=== PATIENT | female | born 1970 | race Caucasian/White ===

== ENCOUNTER → 2016-07-09 | Outpatient (CLI) | payer OTHER ==
--- NOTE | 2016-07-09 18:00 | XR ---
EXAMINATION TYPE: XR shoulder complete LT DATE OF EXAM: 07/09/2016 5:41 PM COMPARISON: NONE HISTORY: Shoulder pain TECHNIQUE: 2 views FINDINGS: I see no fracture nor dislocation. There are no pathologic calcifications. Joint spaces are normal. IMPRESSION: Negative left shoulder exam.
== END ==
LOC: RADXRMAIN 16:56
PROVIDERS: ATTEND Family Medicine
DX: M25.512 Pain in left shoulder (principal)

== ENCOUNTER → 2016-07-10 | Outpatient (CLI) | payer OTHER ==
[2016-07-10 09:17] LABS: Basophils # (A) 0.1 k/uL (0-0.2); Basophils % (A) 1 %; CH 32.3; CHCM 32.5; Eosinophils # (A) 0.1 k/uL (0-0.7); Eosinophils % (A) 1 %; HCT 45.9 % (34.0-46.0); HDW 2.61; HGB 15.2 gm/dL (11.4-16.0); Luc # (Auto) 0.16; Luc % (Auto) 3; Lymphocytes # (A) 1.9 k/uL (1.0-4.8); Lymphocytes % (A) 32 %; MCV 99.8 fL (80.0-100.0); Macrocytosis Slight; Mean Platelet Volume 8.5; Monocytes # (A) 0.3 k/uL (0-1.0); Monocytes % (A) 6 %; Neutrophils # (A) 3.4 k/uL (1.3-7.7); Neutrophils % (A) 57 %; RDW 14.3 % (11.5-15.5); WBC 5.9 k/uL (3.8-10.6); WBC (Perox) 5.88
[2016-07-10 10:25] LABS: Erythrocyte Sedimentation Rate 8 mm/hr (0-20)
[2016-07-10 11:38] LABS: ALT 48 U/L (9-52); AST 28 U/L (14-36); Alkaline Phosphatase 84 U/L (38-126); Anion Gap 13 mmol/L; Blood Urea Nitrogen 18 mg/dL (7-17); Calcium 9.7 mg/dL (8.4-10.2); Carbon Dioxide 29 mmol/L (22-30); Chloride 104 mmol/L (98-107); Cholesterol 191 mg/dL (<200); Glucose 101 mg/dL (74-99); HDL Cholesterol 61 mg/dL (40-60); Potassium 5.1 mmol/L (3.5-5.1); Sodium 146 mmol/L (137-145); Total Bilirubin 0.4 mg/dL (0.2-1.3); Total Protein 7.2 g/dL (6.3-8.2); Triglycerides 165 mg/dL (<150)
[2016-07-10 11:40] LABS: Non-African American GFR(MDRD) >60 (>60 ml/min/1.73 sqM)
[2016-07-10 11:41] LABS: Rheumatoid Factor, Qnt <9 IU/mL (<12)
[2016-07-10 12:30] LABS: Vitamin B12 521 pg/mL (239-931)
== END | disposition home or self-care (01) ==
LOC: LABWHC1 08:59
PROVIDERS: ATTEND Family Medicine
DX: Z00.00 Encounter for general adult medical examination without abnormal findings (principal); R53.83 Other fatigue; M25.50 Pain in unspecified joint
CPT/HCPCS: 36415; 80053; 80061; 82607; 84443; 85025; 85652; 86038; 86431

== ENCOUNTER → 2016-08-31 | Outpatient (CLI) | payer OTHER ==
--- NOTE | 2016-08-31 09:07 | MR ---
EXAMINATION TYPE: MR shoulder LT wo con DATE OF EXAM: 08/31/2016 8:45 AM COMPARISON: Left shoulder x-ray July 09, 2016 HISTORY: Acute pain in left shoulder per order TECHNIQUE: Multiplanar, multisequence imaging of the left shoulder is performed without contrast. FINDINGS: Rotator Cuff: Supraspinatus and infraspinatus tendons are both intact to humeral head attachment. The re is no evidence of suspicious tear or abnormal signal. Rotator cuff muscle bulk is preserved. Subsc apularis tendon is intact. Acromioclavicular Joint: Acromioclavicular joint is felt within normal limits. Distal acromion morpho logy is unremarkable. Underlying fat plane is maintained. Glenohumeral Joint: There is small to moderate glenohumeral joint effusion. No significant spurring i s seen. Labrum: The labrum appears grossly intact given limitation of non-arthrogram study. Biceps Tendon: The long head of biceps is in normal location within bicipital groove. Some increased signal intra-articular portion is present. Bone marrow signal: Some subchondral cystic change superolateral humeral head is present. Other: No additional significant abnormality is appreciated. IMPRESSION: No meniscal or ligamentous tear is seen. Small to moderate glenohumeral joint effusion. M ild tendinosis intra-articular portion of long head of biceps tendon.
== END | disposition home or self-care (01) ==
LOC: RADMRIMAIN 07:59
PROVIDERS: ATTEND Family Medicine
DX: M25.412 Effusion, left shoulder (principal); M75.22 Bicipital tendinitis, left shoulder

== ENCOUNTER 2016-09-18 12:24 | Emergency (ER) | payer OTHER ==
[2016-09-18 12:46] VITALS: BP 115/70; PULSE 100; RESP 18; TEMP 98.7
[2016-09-18] MEDS ORDERED: SULFAMETHOX-TMP 800-160MG 1 EACH TAB PO STA (12:59)
--- NOTE | 2016-09-18 13:00 | ED ---
Skin/Abscess/FB HPI - General Chief complaint: Skin/Abscess/Foreign Body Stated complaint: Abscess Time Seen by Provider: 09/18/16 12:53 Source: patient, RN notes reviewed Mode of arrival: ambulatory Limitations: no limitations - History of Present Illness Initial comments: 46-year-old female presents emergency Department with chief complaint of abscess to her forehead. Patient states that she started with infected hair follicle but states that she poked it with care headache. Patient states that it made it worse and now it's very painful. Denies fever or chills. She states her was some drainage. Patient states she's been taking some medication for the pain is helping. Denies any neck pain or neck stiffness. Patient offers no complaints. She states she has no history of MRSA VRE. - Related Data Previous Rx's Medication Instructions Recorded Mupirocin Calcium 2% Cream 1 applic TOPICAL TID #15 gm 09/18/16 [Bactroban Cream] Sulfamethox-Tmp 800-160Mg [Bactrim 1 each PO Q12HR #20 tab 09/18/16 Ds] Allergies Allergy/AdvReac Type Severity Reaction Status Date / Time bupropion [From Wellbutrin] Allergy Unknown Verified 09/18/16 12:46 Review of Systems ROS Statement: Those systems with pertinent positive or pertinent negative responses have been documented in the HPI. ROS Other: All systems not noted in ROS Statement are negative. Past Medical History Past Medical History: Neurologic Disorder Additional Past Medical History / Comment(s): joint pain. nerve pain History of Any Multi-Drug Resistant Organisms: None Reported Past Surgical History: Ablation, Bariatric Surgery, Tonsillectomy Additional Past Surgical History / Comment(s): cervical ablation Past Psychological History: Anxiety Smoking Status: Current every day smoker Past Alcohol Use History: Occasional Past Drug Use History: None Reported General Exam Limitations: no limitations General appearance: alert, in no apparent distress Head exam: Present: atraumatic, normocephalic. Absent: normal inspection (1 cm abscess at the frontal hairline) Eye exam: Present: normal appearance, PERRL, EOMI. Absent: scleral icterus, conjunctival injection, periorbital swelling ENT exam: Present: normal exam, normal oropharynx, mucous membranes moist Neck exam: Present: normal inspection. Absent: tenderness, meningismus, lymphadenopathy Respiratory exam: Present: normal lung sounds bilaterally. Absent: respiratory distress, wheezes, rales, rhonchi, stridor Cardiovascular Exam: Present: regular rate, normal rhythm, normal heart sounds. Absent: systolic murmur, diastolic murmur, rubs, gallop, clicks Skin exam: Present: warm, dry Course Vital Signs 09/18/16 12:43 Temperature 98.7 F Pulse Rate 100 Respiratory 18 Rate Blood Pressure 115/70 O2 Sat by Pulse 92 L Oximetry Medical Decision Making - Medical Decision Making 46-year-old female presented for scalp abscess. It is nonfluctuant there is some surrounding erythema. Patient placed on antibiotics warm compresses and Bactroban cream. Return parameters members were discussed. Disposition Clinical Impression: Abscess, scalp Disposition: HOME SELF-CARE Condition: Stable Instructions: Abscess (ED) Additional Instructions: Please return to the Emergency Department if symptoms worsen or any other concerns. Prescriptions: Mupirocin Calcium 2% Cream [Bactroban Cream] 1 applic TOPICAL TID #15 gm Sulfamethox-Tmp 800-160Mg [Bactrim Ds] 1 each PO Q12HR #20 tab Referrals: Pastora Verdin MD [Primary Care Provider] - 1-2 days Time of Disposition: 13:00
== END 2016-09-18 13:15 | disposition home or self-care (01) ==
LOC: EC 12:24
DX: L02.811 Cutaneous abscess of head [any part, except face] (principal); F17.200 Nicotine dependence, unspecified, uncomplicated; Z88.8 Allergy status to other drugs, medicaments and biological substances
CPT/HCPCS: 99283

== ENCOUNTER → 2016-12-11 | Outpatient (CLI) | payer OTHER ==
[2016-12-11 13:58] LABS: Basophils # (A) 0.1 k/uL (0-0.2); Basophils % (A) 1 %; CH 33.4; CHCM 32.9; Eosinophils # (A) 0.2 k/uL (0-0.7); Eosinophils % (A) 2 %; HCT 43.8 % (34.0-46.0); HDW 2.16; HGB 14.2 gm/dL (11.4-16.0); Luc # (Auto) 0.12; Luc % (Auto) 1; Lymphocytes # (A) 2.2 k/uL (1.0-4.8); Lymphocytes % (A) 24 %; MCH 32.9 pg (25.0-35.0); MCHC 32.3 g/dL (31.0-37.0); Macrocytosis Slight; Mean Platelet Volume 8.6; Monocytes # (A) 0.4 k/uL (0-1.0); Monocytes % (A) 4 %; Neutrophils % (A) 68 %; RDW 14.5 % (11.5-15.5); WBC 8.9 k/uL (3.8-10.6); WBC (Perox) 9.38
[2016-12-11 14:24] LABS: ALT 30 U/L (9-52); AST 19 U/L (14-36); Alkaline Phosphatase 75 U/L (38-126); Anion Gap 11 mmol/L; Blood Urea Nitrogen 14 mg/dL (7-17); Calcium 9.6 mg/dL (8.4-10.2); Carbon Dioxide 24 mmol/L (22-30); Chloride 106 mmol/L (98-107); Glucose 98 mg/dL (74-99); Iron 134 ug/dL (37-170); Non-African American GFR(MDRD) >60 (>60 ml/min/1.73 sqM); Potassium 4.1 mmol/L (3.5-5.1); Sodium 141 mmol/L (137-145); Total Bilirubin 0.4 mg/dL (0.2-1.3); Total Protein 6.9 g/dL (6.3-8.2)
== END | disposition home or self-care (01) ==
LOC: LABWHC1 13:18
PROVIDERS: ATTEND Family Medicine
DX: R53.83 Other fatigue (principal)
CPT/HCPCS: 36415; 80053; 82672; 83036; 83540; 84144; 84443; 85025

== ENCOUNTER → 2017-01-17 | Outpatient (CLI) | payer BC ==
--- NOTE | 2017-01-17 11:41 | US ---
EXAMINATION TYPE: US pelvis complete transvag DATE OF EXAM: 01/17/2017 COMPARISON: NONE CLINICAL HISTORY: D25.9 Fibroids. Pt states cramping and known fibroids/ History of ablation 9 yrs ag o TECHNIQUE: Transvaginal (TV) and Transabdominal (TA) Date of LMP: 9 years ago EXAM MEASUREMENTS: Uterus: 9.0 x 4.3 x 4.3 cm Endometrial Stripe: 0.4 cm Right Ovary: 1.9 x 1.9 x 1.8 cm Left Ovary: 2.5 x 2.3 x 2.2 cm 1. Uterus: Anteverted Grossly heterogeneous with no definite mass visualized 2. Endometrium: wnl 3. Right Ovary: wnl 4. Left Ovary: wnl 5. Bilateral Adnexa: wnl 6. Posterior cul-de-sac: wnl IMPRESSION: 1. Nonspecific heterogeneity of the uterine myometrium. No distinct mass seen.
== END ==
LOC: RADUSWWP 10:08
PROVIDERS: ATTEND Family Medicine
DX: D25.9 Leiomyoma of uterus, unspecified (principal)
CPT/HCPCS: 76830; 76856

== ENCOUNTER → 2018-06-02 | Outpatient (CLI) | payer OTHER ==
--- NOTE | 2018-06-02 23:07 | XR ---
EXAMINATION TYPE: XR lumbar spine 2 or 3V DATE OF EXAM: 06/02/2018 CLINICAL HISTORY: Low back pain. TECHNIQUE: Frontal and lateral images of the lumbar spine are obtained. COMPARISON: None FINDINGS: There are 5 lumbar type vertebral bodies identified. The lumbar spine shows slight dextro convex scoliotic positioning centered the lumbar spine without evidence of acute fracture or dislocat ion. Straightening of spine is seen on lateral images. There is mild disc space narrowing L4-L5 level otherwise vertebral body heights and disk space heights are within normal limits. Overlying vascular calcification of aorta is seen. Surgical betzaida and sutures epigastric region are noted. IMPRESSION: Loss of normal lumbar lordosis with mild disc space narrowing L4-L5 level.
== END ==
LOC: RADXRMAIN 15:56
PROVIDERS: ATTEND Physician Assistant
DX: M48.061 Spinal stenosis, lumbar region without neurogenic claudication (principal); M40.46 Postural lordosis, lumbar region
CPT/HCPCS: 72100

== ENCOUNTER → 2018-06-30 | Outpatient (CLI) | payer OTHER ==
--- NOTE | 2018-07-01 12:58 | MM ---
Reason for exam: screening (asymptomatic). Last mammogram was performed 2 years and 4 months ago. Physical Findings: A clinical breast exam by your physician is recommended on an annual basis and results should be correlated with mammographic findings. MG Screening Mammo w CAD Bilateral CC and MLO view(s) were taken. Prior study comparison: March 14, 2016, mammogram, performed at [place]. March 25, 2014, mammogram, performed at [place]. The breast tissue is heterogeneously dense. This may lower the sensitivity of mammography. Benign oil cyst calcifications on the right breast. No significant changes when compared with prior studies. ASSESSMENT: Negative, BI-RAD 1 RECOMMENDATION: Routine screening mammogram of both breasts in 1 year.
== END ==
LOC: RADMAMWWP 13:23
PROVIDERS: ATTEND Family Medicine
DX: Z12.31 Encounter for screening mammogram for malignant neoplasm of breast (principal)
CPT/HCPCS: 77067

== ENCOUNTER → 2019-03-31 | Outpatient (CLI) | payer OTHER ==
--- NOTE | 2019-03-31 21:48 | MR ---
EXAMINATION TYPE: MR lumbar spine wo con DATE OF EXAM: 03/31/2019 COMPARISON: Lumbar spine x-ray June 02, 2018 HISTORY: Low back pain TECHNIQUE: Multiplanar, multisequence imaging of the lumbar spine is performed without IV contrast. FINDINGS: Sagittal images of the lumbar spine show vertebral body heights and alignment to appear sa tisfactory. Multilevel disc desiccation with mild multilevel disc space narrowing. The conus medulla ris is normal in position and signal and the labeled superior L1 level. The bone marrow signal inten sity is within normal limits. Axial images beginning labeled T12-L1 level which is within normal limits. Axial images at L1-L2 and L2-L3 levels remain within normal limits. Axial images at L3-L4 level show mild left greater than right facet degenerative changes and ligament flavum hypertrophy effacing the posterior lateral thecal sac on axial image 13. Axial images at L4-L5 level moderate facet degenerative changes with mild perinephric space and poste rior lateral thecal sac. There is mild/moderate broad disc bulge with right foraminal disc protrusion component on axial image 8. This effacement the anterior thecal sac. There is mild left and moderate right-sided inferior neural foraminal narrowing. Encroachment on exiting right L4 nerve suspected ax ial image 8 and sagittal image 12. Axial images at L5-S1 level show moderate facet degenerative changes and ligamentum flavum hypertroph y effacing posterior lateral thecal sac with mild/moderate broad disc bulge minimally effacing the an terior thecal sac. There is mild bilateral anterior inferior neural foraminal narrowing right greater than left with some encroachment on the inferior margin right L5 nerve suspected sagittal image 12 a nd axial image 3. No suspicious incidental retroperitoneal findings. IMPRESSION: Multilevel degenerative changes most prominent lower lumbar levels as detailed above
== END | disposition home or self-care (01) ==
LOC: RADMRIMAIN 14:39
PROVIDERS: ATTEND Physician Assistant
DX: M99.73 Connective tissue and disc stenosis of intervertebral foramina of lumbar region (principal); M48.07 Spinal stenosis, lumbosacral region; M48.061 Spinal stenosis, lumbar region without neurogenic claudication; M51.27 Other intervertebral disc displacement, lumbosacral region; M51.26 Other intervertebral disc displacement, lumbar region; M47.817 Spondylosis without myelopathy or radiculopathy, lumbosacral region; M47.816 Spondylosis without myelopathy or radiculopathy, lumbar region
CPT/HCPCS: 72148

== ENCOUNTER → 2019-11-06 | Outpatient (CLI) | payer OTHER | END | disposition home or self-care (01) | LOC: LABWHC1 13:04 | PROVIDERS: ATTEND Nurse Practitioner Family | DX: Z20.828 Contact with and (suspected) exposure to other viral communicable diseases (principal) ==

== ENCOUNTER → 2020-02-11 | Outpatient (CLI) | payer OTHER ==
--- NOTE | 2020-02-12 12:20 | MM ---
Reason for exam: screening (asymptomatic). Last mammogram was performed 1 year and 7 months ago. Physical Findings: A clinical breast exam by your physician is recommended on an annual basis and results should be correlated with mammographic findings. MG Screening Mammo w CAD Bilateral CC and MLO view(s) were taken. Prior study comparison: June 30, 2018, bilateral MG screening mammo w CAD. March 14, 2016, mammogram, performed at [place]. The breast tissue is heterogeneously dense. This may lower the sensitivity of mammography. There are benign appearing round calcifications bilaterally. There is no discrete abnormality. ASSESSMENT: Benign, BI-RAD 2 RECOMMENDATION: Routine screening mammogram of both breasts in 1 year.
== END | disposition home or self-care (01) ==
LOC: RADMAMWWP 13:31
PROVIDERS: ATTEND Family Medicine
DX: Z12.31 Encounter for screening mammogram for malignant neoplasm of breast (principal)
CPT/HCPCS: 77067

== ENCOUNTER 2020-04-21 15:26 | Emergency (ER) | payer OTHER ==
[2020-04-21 15:32] VITALS: TEMP 98.9
[2020-04-21 16:08] LABS: Basophils # (A) 0.1 k/uL (0-0.2); Basophils % (A) 2 %; Eosinophils # (A) 0.2 k/uL (0-0.7); Eosinophils % (A) 2 %; HCT 36.8 % (34.0-46.0); HGB 12.1 gm/dL (11.4-16.0); Lymphocytes # (A) 2.3 k/uL (1.0-4.8); Lymphocytes % (A) 28 %; MCH 29.4 pg (25.0-35.0); MCV 89.3 fL (80.0-100.0); Mean Platelet Volume 7.7; Monocytes # (A) 0.3 k/uL (0-1.0); Monocytes % (A) 4 %; Neutrophils % (A) 62 %; Platelet Count 255 k/uL (150-450); RBC 4.12 m/uL (3.80-5.40); WBC 8.2 k/uL (3.8-10.6)
[2020-04-21 16:17] LABS: ALT 13 U/L (4-34); AST 19 U/L (14-36); African American GFR (CKD) >90 (>60 ml/min/1.73 sqM); Albumin 4.3 g/dL (3.5-5.0); Alkaline Phosphatase 82 U/L (38-126); Anion Gap 13 mmol/L; Blood Urea Nitrogen 12 mg/dL (7-17); Calcium 9.6 mg/dL (8.4-10.2); Carbon Dioxide 17 mmol/L (22-30); Chloride 107 mmol/L (98-107); Glucose 188 mg/dL (74-99); Lipase 84 U/L (23-300); Magnesium 1.9 mg/dL (1.6-2.3); Non-African American GFR(CKD) >90 (>60 ml/min/1.73 sqM); Potassium 3.8 mmol/L (3.5-5.1); Sodium 137 mmol/L (137-145); Total Bilirubin 0.2 mg/dL (0.2-1.3); Total Protein 7.2 g/dL (6.3-8.2)
--- NOTE | 2020-04-21 16:24 | XR ---
EXAMINATION TYPE: XR chest 2V DATE OF EXAM: 04/21/2020 COMPARISON: NONE HISTORY: Chest pain today. TECHNIQUE: Frontal and lateral views of the chest are obtained. FINDINGS: There is no focal air space opacity, pleural effusion, or pneumothorax seen. The cardiac silhouette size is within normal limits. The osseous structures are intact. Surgical clips epigastr ic region. Overlying EKG leads. IMPRESSION: No acute cardiopulmonary process.
--- NOTE | 2020-04-21 16:28 | ED ---
Chest Pain HPI - General Chief Complaint: Chest Pain Stated Complaint: Chest pain Time Seen by Provider: 04/21/20 15:34 Source: patient Mode of arrival: ambulatory Limitations: no limitations - History of Present Illness Initial Comments: Patient is a 50-year-old female presents to the emergency department with reported chest pain that she has had for the last week. Reports intermittent. Denies any provocative factors. States she has associated shortness of breath. No history of coronary disease. Patient is a smoker. Denies COPD or asthma history. No fevers or chills. Denies cough. Symptoms to her primary care doctor sent her into the emergency room for evaluation. No other alleviating, precipitating or modifying factors - Related Data Home Medications Medication Instructions Recorded Confirmed Albuterol Inhaler [Ventolin Hfa 1 - 2 puff INHALATION RT-Q6H PRN 04/21/20 04/21/20 Inhaler] Budesonide/Formoterol Fumarate 2 puff INHALATION RT-BID 04/21/20 04/21/20 [Symbicort 160-4.5 Mcg Inhaler] Ibuprofen [Motrin] 800 mg PO TID PRN 04/21/20 04/21/20 LORazepam [Ativan] 1 mg PO BID PRN 04/21/20 04/21/20 methocarbamoL [Robaxin] 750 mg PO TID PRN 04/21/20 04/21/20 Allergies Allergy/AdvReac Type Severity Reaction Status Date / Time bupropion [From Wellbutrin] Allergy Rash/Hives Verified 04/21/20 17:17 Review of Systems ROS Statement: Those systems with pertinent positive or pertinent negative responses have been documented in the HPI. ROS Other: All systems not noted in ROS Statement are negative. EKG Findings - EKG Comments: EKG Findings:: EKG demonstrates a sinus tachycardia with a ventricular rate of 105. GA interval 144. QRS 86. QTC of 41. No acute ST segment elevations or depressions Past Medical History Past Medical History: Neurologic Disorder Additional Past Medical History / Comment(s): joint pain. nerve pain History of Any Multi-Drug Resistant Organisms: MRSA Date of last positivie culture/infection: 09/20/16 MDRO Source:: head Past Surgical History: Ablation, Bariatric Surgery, Tonsillectomy Additional Past Surgical History / Comment(s): cervical ablation Past Psychological History: Anxiety Smoking Status: Current every day smoker Past Alcohol Use History: Occasional Past Drug Use History: None Reported General Exam Limitations: no limitations Course Vital Signs 04/21/20 04/21/20 15:28 17:16 Temperature 98.9 F Pulse Rate 110 H 100 Respiratory 18 16 Rate Blood Pressure 129/66 108/70 O2 Sat by Pulse 100 99 Oximetry Chest Pain MDM - MDM Upon arrival patient is placed into room 11. A thorough history and physical exam was performed. Laboratory studies were conducted the patient went for chest x-ray. D-dimer is negative. Troponin is negative. Chest x-ray demonstrates no acute process. Discuss results with the patient's. Did discuss admission for echo. Patient refused stating that she wanted to go home and felt a primary care doctor for this. I did refer her back to Dr. Butcher's office. Recommended she get a stress test and echo. Return to the emergency room for any new or worsening symptoms. Patient was discharged with stable condition Disposition Clinical Impression: Chest pain Disposition: HOME SELF-CARE Condition: Stable Instructions (If sedation given, give patient instructions): Chest Pain (ED) Additional Instructions: Please follow-up with your primary care doctor. I recommend an Echo and Stress test. Return to the emergency room for any new or worsening symptoms Is patient prescribed a controlled substance at d/c from ED?: No Referrals: Avtar Butcher MD [Primary Care Provider] - 1-2 days Time of Disposition: 17:14
[2020-04-21 16:30] LABS: D-Dimer 0.26 mg/L FEU (<0.60); INR 0.9 (<1.2); Prothrombin Time 9.4 sec (9.0-12.0)
[2020-04-21 16:35] LABS: Partial Thromboplastin Time 21.8 sec (22.0-30.0)
[2020-04-21 17:17] VITALS: BP 108/70; PULSE 100; RESP 16
== END 2020-04-21 17:30 | disposition home or self-care (01) ==
LOC: EC 15:26
DX: R07.9 Chest pain, unspecified (principal); R06.02 Shortness of breath; F41.9 Anxiety disorder, unspecified; F17.200 Nicotine dependence, unspecified, uncomplicated; Z79.51 Long term (current) use of inhaled steroids; Z79.899 Other long term (current) drug therapy; Z88.8 Allergy status to other drugs, medicaments and biological substances; Z98.84 Bariatric surgery status
CPT/HCPCS: 36415; 71046; 80053; 83690; 83735; 83880; 84484; 85025; 85379; 85610; 85730; 93005; 99285

== ENCOUNTER → 2020-05-30 | Outpatient (CLI) | payer OTHER ==
[2020-05-30 12:31] VITALS: BP 120/75; PULSE 94; RESP 16; TEMP 98.3
--- NOTE | 2020-05-30 20:12 | P.PAINCN ---
History of Present Illness - Reason for Consult Consult date: 05/30/20 Low back pain - Chief Complaint Low back pain - History of Present Illness 50-year-old female who presents to the [facility] pain clinic as an initial consultation. She was a previous patient of Dr. Shelton Stewart. In July and October 2019 she underwent lumbar medial branch diagnostic test of the L2, L3, L4, L5 medial branches. She reports significant relief greater than 70% with both those test. The benefits lasted for greater than 4 days. Pain today is an 8 out of 10 in severity describes as a throbbing, aching, sharp pain in her low back worse with movement and any activity periods improved with rest. Pain is typically worse in the morning improved slightly during the morning hours and progressively gets worse as the day progresses. She's been taking Motrin 800 mg 3 times a day for the past 13 years. Into her own admission she feels "dependent" on Motrin. She is also taking benzodiazepines for severe anxiety. Review of Systems Constitutional: Denies chills, Denies fever Ears, nose, mouth and throat: Denies headache, Denies sore throat Cardiovascular: Denies chest pain, Denies shortness of breath Respiratory: Denies cough Gastrointestinal: Denies abdominal pain, Denies diarrhea, Denies nausea, Denies vomiting Genitourinary: Denies dysuria, Denies hematuria Musculoskeletal: Denies myalgias Integumentary: Denies pruritus, Denies rash Neurological: Denies numbness, Denies weakness Psychiatric: Denies anxiety, Denies depression Endocrine: Denies fatigue, Denies weight change Past Medical History Past Medical History: Chest Pain / Angina, COPD, Neurologic Disorder Additional Past Medical History / Comment(s): lower back History of Any Multi-Drug Resistant Organisms: MRSA Year Discovered:: 09/20/16 MDRO Source:: head Past Surgical History: Bariatric Surgery, Tonsillectomy Additional Past Surgical History / Comment(s): cervical ablation, oral sx, pain injections Past Anesthesia/Blood Transfusion Reactions: No Reported Reaction Smoking Status: Current every day smoker Medications and Allergies Home Medications Medication Instructions Recorded Confirmed Type Albuterol Inhaler [Ventolin Hfa 1 - 2 puff INHALATION RT-Q6H PRN 04/21/20 05/26/20 History Inhaler] Budesonide/Formoterol Fumarate 2 puff INHALATION RT-BID 04/21/20 05/26/20 History [Symbicort 160-4.5 Mcg Inhaler] Ibuprofen [Motrin] 800 mg PO TID PRN 04/21/20 05/26/20 History LORazepam [Ativan] 1 mg PO BID PRN 04/21/20 05/26/20 History methocarbamoL [Robaxin] 750 mg PO TID PRN 04/21/20 05/26/20 History Nicotine 21Mg/24Hr Patch [Habitrol] 1 each TRANSDERM DAILY 05/26/20 05/26/20 History Otc Sleep Aid 1 tab PO HS 05/26/20 History Allergies Allergy/AdvReac Type Severity Reaction Status Date / Time bupropion [From Wellbutrin] Allergy Rash/Hives Verified 05/26/20 15:07 Physical Exam Vitals: Reviewed and Appropriate. General: Awake and alert oriented 3 no distress Respiratory exam: No audible wheezing no accessory muscle usage Cardiovascular exam: regular rate, palpable bilateral pulses, no lower extremity edema Abdominal exam: No distention nontender to palpation Cervical spine: Flexion and extension are preserved, lateral rotation preserved. Rodriguez's is negative bilaterally. Upper shoulder strength is normal bilaterally. 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 Pincer grasp is normal. Lumbar spine: Loss of lumbar lordosis, atrophy of the paraspinal muscles. Pain with extension at -5 degrees. Facet loading positive bilateral. Lower extremity strength is 4-5 bilaterally at the hamstrings and quadriceps. Is able stand on her toes and her heels. Deep tendon reflexes are 2+ bilaterally. Sacroiliac joints: Nontender to palpation, JULIETTE is negative, Gaenselon negative Neuro exam: Normal sensation in bilateral upper extremities, deep tendon reflexes are 2+ bilateral upper extremities. Normal sensation in bilateral lower extremities. Deep tendon reflexes are 2+ in lower extremities Psych exam: Cooperative, appropriate mood, anxious Results Results: MRI lumbar spine May 2018: Shows multilevel moderate degenerative disc disease as well as facet arthropathy greatest at L3-L4, L4-L5, L5-S1. There is bilateral neural foraminal narrowing on the right greater than left encroaching on the right L5 nerve root at L5-S1. There is also encroachment of the right L4 nerve root secondary to neural foraminal narrowing. Assessment and Plan Assessment: 1. Lumbar spondylosis without myelopathy 2. Lumbar degenerative disc disease L4 5 3. Lumbar anterior listhesis L4-5 Plan: We'll schedule for bilateral lumbar radio efficacy ablation of the L2, L3, L4, L5 medial branches. Risks and benefits discussed with patient in detail. PQRS Measure Charge Sheet PQRS Narrative: Smoking Status Current every day smoker Pain Intensity [Back] 7 Scale Used Numeric (1 - 10) Home Medications: Ambulatory Orders Albuterol Inhaler [Ventolin Hfa Inhaler] 1 - 2 puff INHALATION RT-Q6H PRN 04/21/20 Budesonide/Formoterol Fumarate [Symbicort 160-4.5 Mcg Inhaler] 2 puff INHALATION RT-BID 04/21/20 Ibuprofen [Motrin] 800 mg PO TID PRN 04/21/20 LORazepam [Ativan] 1 mg PO BID PRN 04/21/20 methocarbamoL [Robaxin] 750 mg PO TID PRN 04/21/20 Nicotine 21Mg/24Hr Patch [Habitrol] 1 each TRANSDERM DAILY 05/26/20 Otc Sleep Aid 1 tab PO HS 05/26/20
== END | disposition home or self-care (01) ==
LOC: PNWHC3 12:02
PROVIDERS: ATTEND Anesthesiology
DX: M43.16 Spondylolisthesis, lumbar region (principal); M51.36 Other intervertebral disc degeneration, lumbar region; M47.816 Spondylosis without myelopathy or radiculopathy, lumbar region; Z88.6 Allergy status to analgesic agent
CPT/HCPCS: 99211

== ENCOUNTER 2020-06-17 08:39 | Day surgery (SDC) | payer OTHER ==
[2020-06-15 16:08] VITALS: BMI 29.2
[~2020-06-17 08:39] MED LIST: HYDROmorphone 0.5 MG/0.5 ML SYRINGE IVP PRN; LACTATED RINGERS 1,000 ML IV SCH; MIDAZOLAM 2 MG/2 ML VIAL IV PRN
[2020-06-17 09:13] VITALS: TEMP 98.2
[2020-06-17] MEDS ORDERED: LIDOCAINE 1% (10MG/ML) FOR IV START INTRADERMA ONE (09:13)
[2020-06-17] MEDS ORDERED: MIDAZOLAM 2 MG/2 ML VIAL ONE (10:06)
[2020-06-17] MEDS ORDERED: methylPREDNISolone ACETATE 40 MG/ML 1 ML VIAL ONE (10:06)
[2020-06-17] MEDS ORDERED: ROPIVACAINE 5MG/ML 20ML VIAL ONE (10:06)
[2020-06-17] MEDS ORDERED: fentaNYL (PF) 50 MCG/ML 2 ML AMP ONE (10:06)
--- NOTE | 2020-06-17 10:42 | P.PCN ---
Date of Procedure: 06/17/20 Procedure(s) Performed: PREOPERATIVE DIAGNOSIS: 1-Lumbar Spondylosis with Facet Arthropathy without myelopathy. 2- Lumber degenerative disc disease. POSTOPERATIVE DIAGNOSIS: 1- Lumbar Spondylosis with Facet Arthropathy without myelopathy. 2- Lumber degenerative disc disease. PROCEDURES : Bilateral Radiofrequency thermocoagulation,L2 ,L3 , L4 , and L5 medial branch, with fluoroscopic guidance (fluoroscopy images available in the radiology department) ( to denervate the facet joint at bilateral L3-4 , L4-5 ,and L5-S1 levels ). ANESTHESIA: Monitored anesthesia care as per anesthesia department. EBL: Minimal PROCEDURE INDICATION: The patient with low back pain secondary to lumbar facet arthropathy who had more than 50% relief of her pain with previous diagnostic lumbar medial branch block with bupivacaine. PROCEDURE DESCRIPTION / TECHNIQUE: The patient was seen and identified in the preoperative area. Risks, benefits, complications, including but not limited to risk of infection ,bleeding , allergic reactions to the medications and no complete pain releife , and alternatives were discussed with the patient, the patient agreed to proceed with the procedure and signed the consent. IV was started. Vital signs remained stable throughout the procedure. Patient was taken to the OR and time out was completed. The patient was placed in the prone position on the procedure table. The lumber area was prepped and draped in the usual sterile fashion. . Vital signs were closely monitored during the procedure .IV sedation was used during the procedure to decrease patients anxiety. Using AP and then oblique fluoroscopy, the ``eye of the Deshawn dog corresponding to the connection between the superior and transverse articular processes of right L2 ,L3, L4, and L5 were identified, marked, and localized with 1% lidocaine. Subsequently, a [id number] radiofrequency cannula with a 10-mm active tip was advanced guided by fluoroscopy to each of the``eyes of the Deshawn dog at right L2 , L3, L4, and L5. Each site then underwent sensory testing at 50 Hz and 0 to 1 volt and motor testing at 2.5 Hz and 0 to 3 volt with local stimulation, but no radicular symptoms down the legs. Thereafter each sites underwent radiofrequency thermocoagulation at 80 degrees celsius for 90 seconds after injecting 0.5 ml of PF Ropivacaine 1ml, then after the thermocoagulation done , 1 ml of the block solution containing Depo-Medrol 40 mg and 3 ml of Ropivacaine 0.5% was injected at the right L2, L3 , L4 , and L5 , levels after negative aspiration of CSF and blood and with no paresthesias. Cannulas were retracted while injecting lidocaine 1% until the needle is out. The same procedure was repeated at the level of Left L2, L3, L4, and L5 levels. At the end of the procedure, the skin was cleansed and bandages were applied. COMPLICATIONS: No acute complications. DISPOSITION / PLANS: The patient was placed in a supine position and transferred to the recovery area in a stable condition for observation and was discharged from the recovery room after meeting discharge criteria. Home discharge instructions given to the patient by the staff. The patient was reexamined prior to discharge. The patient will schedule a follow up in the clinic in 2-4 weeks.
--- NOTE | 2020-06-17 10:56 | FL ---
Fluoroscopy History: LUMBAR RF DR. JIMENEZ, RF LUMBAR. 13 SECONDS FL TIME
[2020-06-17 11:02] VITALS: BP 118/73; PULSE 91; RESP 16
== END 2020-06-17 11:25 | disposition home or self-care (01) ==
LOC: ORPAIN 08:39
PROVIDERS: ATTEND Specialist
DX: M47.816 Spondylosis without myelopathy or radiculopathy, lumbar region (principal); M51.36 Other intervertebral disc degeneration, lumbar region; J44.9 Chronic obstructive pulmonary disease, unspecified; F17.200 Nicotine dependence, unspecified, uncomplicated; Z98.890 Other specified postprocedural states; Z88.8 Allergy status to other drugs, medicaments and biological substances; Z90.710 Acquired absence of both cervix and uterus; Z88.6 Allergy status to analgesic agent; Z79.899 Other long term (current) drug therapy; Z79.51 Long term (current) use of inhaled steroids
CPT/HCPCS: 81025; 64635; 64636; J2250; J1030; J3010; J2795

== ENCOUNTER → 2020-07-06 | Outpatient (CLI) | payer OTHER ==
[2020-07-06 10:10] VITALS: BP 117/72; PULSE 117; RESP 16; TEMP 97.7
--- NOTE | 2020-07-06 10:42 | P.PN ---
Subjective Progress Note Date: 07/06/20 This is a follow-up visit for this 50 years old female with a chronic history of severe low back pain, she is diagnosed with lumbar spondylosis with lumbar facet arthropathy without myelopathy, and lumbar degenerative disc disease, status post RFA of the medial branch lumbar area, patient reported that her pain improved 75% after the RFA, she continued to have severe low back pain in the buttock area, the pain is constant and increases with any activity, she denies any motor or sensory deficit she denies any fever or night sweats and she denies any change in the bowel movement or urination, he is able to ambulate freely Objective - Vital Signs Vital signs: Vital Signs Temp 97.7 F 07/06/20 10:06 Pulse 117 H 07/06/20 10:06 Resp 16 07/06/20 10:06 BP 117/72 07/06/20 10:06 Pulse Ox 94 L 07/06/20 10:06 - Exam Physical Examinations : -Constitutiona : Cooperative , not in acute distress . -HEENT : nech : supple , no Lymphadenopathy , normal thyroid size . : eyes : no ptosis , no icterus, no photophobia . - neurologic : Cranial nerve II to XII intact , no focal neurological deffecit . -psychatric : alert , oriented X 3 , appropriate affect , intact judgment and insight . -Lymphatic : no Lymphadenopathy . - musculoskeltal : Lumber spine moter stegnth lower extremities ,thigh and legs 5/5 Right side , 5/5 Left side deep tendon reflexes : normal Knee Jerk , normal ankle Jerk lumber facet Loading Test = negative bilaterally Range of motion of the lumbar spine Flexion 60 degrees, extension 30 degrees strait leg raising test = negative Fabere test= negative bilaterally . Sever tenderness over the Sacroiliac joint on the Right , and Left sides Gaenslen test= positive right ,and positive left . Seated flexion test= positive right ,and positive Left . Assessment and Plan Plan: Assessment and plan=1-lumbar spondylosis with lumbar facet arthropathy without myelopathy. 2-lumbar degenerative disc disease. 3-bilateral sacroiliitis. Patient reported that she had 75% improvement in her low back pain after the RFA of the medial branch lumbar area Currently she is having Localized pain in the low back area mostly secondary to the sacroiliitis, discussed with the patient the option of doing bilateral sacroiliac joint injection, versus medication management patient preferred to use medication patient given prescription for Voltaren gel 1% to be applied to the low back area twice daily, and she will follow up in the pain clinic when necessary. - PQRS measures = - Patient's medications are documented in the chart. -Tobacco use is positive, and counseling.Given. -Patient's has received pneumococcal vaccine. -Advanced care planning discussed, patient not eligible. -Opiate contract not signed. -Pain positive and follow-up visit/procedure is scheduled. -Patient's blood pressure measured [ 117/72 ] , and documented in the record ,and patient will follow up with the primary care. -Patient's weight was measured and body mass index [ 29.2 ] above the normal limits and counseling was done. and patient instructed to follow-up with the primary care physician. -Patient was not identified as an unhealthy alcohol user Time with Patient: Less than 30
== END | disposition home or self-care (01) ==
LOC: PNWHC3 09:36
PROVIDERS: ATTEND Specialist
DX: M51.36 Other intervertebral disc degeneration, lumbar region (principal); M47.816 Spondylosis without myelopathy or radiculopathy, lumbar region; M46.1 Sacroiliitis, not elsewhere classified
CPT/HCPCS: 99211

== ENCOUNTER → 2020-09-01 | Outpatient (CLI) | payer OTHER ==
--- NOTE | 2020-09-01 08:37 | US ---
EXAMINATION TYPE: US duplex aorta DATE OF EXAM: 09/01/2020 COMPARISON: NONE CLINICAL HISTORY: Z13.6 Encounter for screening for cardiovascular. Patient states having outside radha ms of back that showed aneurysm. No HTN. EXAM MEASUREMENTS: Abdominal Aorta: Proximal: 1.9 x 2.1 cm Mid: 1.9 x 2.0 cm Distal: 1.5 x 1.9 cm Bifurcation: Right- 1.1 x 0.8 cm Left- 1.1 x 0.7 cm No AAA visualized at time of scan. Abdominal aorta is visualized contiguously through the bifurcation. IMPRESSION: No ultrasound evidence for greater than 3.0 cm AAA.
== END | disposition home or self-care (01) ==
LOC: RADUSWWP 07:16
PROVIDERS: ATTEND Family Medicine
DX: Z13.6 Encounter for screening for cardiovascular disorders (principal)
CPT/HCPCS: 93979

== ENCOUNTER → 2020-11-03 | Outpatient (CLI) | payer OTHER ==
--- NOTE | 2020-11-30 13:36 | EM ---
EVENT MONITOR AGE:: 50 SEX:: F INDICATIONS:: Palpitations. This is a 30 day event monitor, but we only have a 21 days worth of data and represents the time the patient actually wore it and it shows sinus rhythm with episodes of sinus tachycardia and paroxysmal atrial tachycardia. CONCLUSION: Event monitor shows sinus rhythm with episodes of his SVT __ . MMODL / IJN: [id number] / MTDD
== END | disposition home or self-care (01) ==
LOC: RADECHMAIN 11:39
PROVIDERS: ATTEND Family Medicine
DX: R00.2 Palpitations (principal); R07.9 Chest pain, unspecified
CPT/HCPCS: 93270

== ENCOUNTER → 2020-11-21 | Outpatient (CLI) | payer OTHER ==
--- NOTE | 2020-11-21 18:10 | ECHOF ---
Referral Reason: MEASUREMENTS -------- HEIGHT: 162.6 cm WEIGHT: 78.9 kg BP: IVSd: 1.2 cm (0.6 - 1.1) LVIDd: 3.7 cm (3.9 - 5.3) LVPWd: 1.1 cm (0.6 - 1.1) EDV(Teich): 59 ml IVSs: 1.6 cm LVIDs: 1.8 cm LVPWs: 1.7 cm %IVS Thck: 41 % ESV(Teich): 9 ml EF(Teich): 84 % %FS: 53 % SV(Teich): 50 ml RVIDd: 3.0 cm (< 3.3) IVC: 16.74 mm LALs A4C: 4.3 cm LAAs A4C: 12.8 cm LAESV A-L A4C: 33 ml LAESV MOD A4C: 31 ml LALs A2C: 4.4 cm LAAs A2C: 12.3 cm LAESV A-L A2C: 30 ml LAESV MOD A2C: 28 ml LAESV(A-L): 31 ml Ao Diam: 3.1 cm (2.0 - 3.7) LA Diam: 3.0 cm (2.7 - 3.8) AV Cusp: 2.2 cm (1.5 - 2.6) EPSS: 0.9 cm MR Vmax: 2.49 m/s MR maxP.84 mmHg AV Vmax: 1.09 m/s AV maxP.71 mmHg TR Vmax: 1.26 m/s TR maxP.33 mmHg RAP: 5.00 mmHg RVSP: 11.33 mmHg MV EF SLOPE: 150.46 mm/s (70 - 150) MV EXCURSION: 15.97 mm (> 18.000) FINDINGS -------- This was a technically good study. The left ventricular size is normal. There is mild concentric left ventricular hypertrophy. Overa ll left ventricular systolic function is low-normal with, an EF between 50 - 55 %. The right ventricle is normal in size. The left atrial size is normal. Normal LA size by volume 22+/-6 ml/m2. The right atrial size is normal. The aortic valve is trileaflet and appears structurally normal. The mitral valve is normal. Mild mitral regurgitation is present. The tricuspid valve appears structurally normal. Trace tricuspid regurgitation present. Right radha tricular systolic pressure is normal at < 35 mmHg. There is no pulmonic regurgitation present. The aortic root size is normal. Normal inferior vena cava with normal inspiratory collapse consistent with estimated right atrial pre ssure of 5 mmHg. There is no pericardial effusion. CONCLUSIONS -------- 1. The left ventricular size is normal. 2. There is mild concentric left ventricular hypertrophy. 3. Overall left ventricular systolic function is low-normal with, an EF between 50 - 55 %. 4. Mild mitral regurgitation is present. 5. Trace tricuspid regurgitation present. 6. There is no pericardial effusion. REHAB OFFICE COORDINATOR: Patricia Serra RDCS
== END | disposition home or self-care (01) ==
LOC: RADECHMAIN 11:32
PROVIDERS: ATTEND Family Medicine
DX: I51.7 Cardiomegaly (principal); I34.0 Nonrheumatic mitral (valve) insufficiency; R00.2 Palpitations; Z88.5 Allergy status to narcotic agent
CPT/HCPCS: 93306

== ENCOUNTER → 2020-12-12 | Outpatient (CLI) | payer OTHER ==
--- NOTE | 2020-12-12 14:51 | EST ---
EXERCISE STRESS DATE OF SERVICE: AGE: 50 SEX: F HT: 5'4" WT: 170 lbs. PROTOCOL: Jayjay STAGE: 1 DURATION OF EXERCISE: 3:45 HEART RATE REST: 104 BLOOD PRESSURE REST: 131/83 MAXIMUM HEART RATE ACHIEVED: 155 MAXIMUM BLOOD PRESSURE: 207/80 85% MPHR: 143 100% MPHR: 165 METS: 5.4 RESULTS: Baseline rhythm is sinus mechanism, rate of 104, right axis deviation. Baseline blood pressure 131/83 mmHg. Patient exercised on Jayjay protocol for 3 minutes 45 seconds reaching peak rate 163 beats per minute which is equal to 99% maximum predicted heart rate. Peak blood pressure 222/76 mmHg. Test was terminated secondary to fatigue. There was no chest pain. Electrocardiograph monitoring revealed no evidence of diagnostic ischemic ST deviation. CONCLUSION: 1. Poor exercise tolerance. 2. Normal electrocardiograph response to exercise with no evidence of exercise induced ischemia. MMODL / IJN: [id number] /
== END | disposition home or self-care (01) ==
LOC: RADNMMAIN 08:24
PROVIDERS: ATTEND Family Medicine
DX: R00.2 Palpitations (principal); R07.9 Chest pain, unspecified
CPT/HCPCS: 93017

== ENCOUNTER → 2022-03-08 | Outpatient (CLI) | payer BC ==
--- NOTE | 2022-03-09 10:09 | MM ---
Reason for Exam: Screening (asymptomatic). Last mammogram was performed 2 year(s) and 0 month(s) ago. Patient History: Menarche at age 10. First Full-Term at age 24. Postmenopausal. Last menstrual period: 11/26/2007 Risk Values: Juliet 5 year model risk: 1.3%. NCI Lifetime model risk: 9.3%. Prior Study Comparison: 03/14/2016 Screening Mammogram, [place]. 06/30/2018 Bilateral Screening Mammogram, [facility]. 02/11/2020 Bilateral Screening Mammogram, [facility]. Tissue Density: There are scattered fibroglandular densities. Findings: Analyzed By CAD. Asymmetry left breast medial aspect anterior depth approximately 47 mm from the nipple and measures 10 mm. Not definitively seen on MLO view. Overall Assessment: Incomplete: need additional imaging evaluation, BI-RAD 0 Management: Special View Mammogram of the left breast. A clinical breast exam by your physician is recommended on an annual basis and results should be correlated with mammographic findings. [facility] will attempt to contact patient to return for supplemental views and ultrasound if indicated. Electronically signed and approved by: Robert Alicia DO
== END | disposition home or self-care (01) ==
LOC: RADMAMWWP 13:48
PROVIDERS: ATTEND Obstetrics & Gynecology
DX: Z12.31 Encounter for screening mammogram for malignant neoplasm of breast (principal)
CPT/HCPCS: 77067

== ENCOUNTER → 2022-03-15 | Outpatient (CLI) | payer BC ==
--- NOTE | 2022-03-15 14:16 | MM ---
Reason for Exam: Additional evaluation requested from abnormal screening. Last screening mammogram was performed less than 1 month ago. Patient History: Menarche at age 10. First Full-Term at age 24. Postmenopausal. Risk Values: Juliet 5 year model risk: 1.3%. NCI Lifetime model risk: 9.3%. Prior Study Comparison: 06/30/2018 Bilateral Screening Mammogram, [facility]. 02/11/2020 Bilateral Screening Mammogram, [facility]. 03/08/2022 Bilateral MG screening mammo w CAD, [facility]. Tissue Density: Left: There are scattered fibroglandular densities. Findings: Analyzed By CAD. The asymmetric density medially at an anterior depth incompletely disperses on spot through the needle. However, it is not well seen on the tomographic images. Also, no clear correlate on the 3-D lateral view. It appears to disperse on the CC rolled view. Superimposition shadow suggested. Six-month follow-up recommended. Overall Assessment: Probably benign, BI-RAD 3 Management: Diagnostic Mammogram of the left breast in 6 months. 1. Patient should continue monthly self breast exams. 2. A clinical breast exam by your physician is recommended on an annual basis. 3. This exam should not preclude additional follow-up of suspicious palpable abnormalities. Results were given to the patient verbally at the time of exam. Electronically signed and approved by: Shelby Johnson M.D. Radiologist
== END | disposition home or self-care (01) ==
LOC: RADMAMWWP 13:32
PROVIDERS: ATTEND Obstetrics & Gynecology
DX: R92.8 Other abnormal and inconclusive findings on diagnostic imaging of breast (principal); Z78.0 Asymptomatic menopausal state
CPT/HCPCS: 77061; 77065

== ENCOUNTER → 2022-09-14 | Outpatient (CLI) | payer SELFPAY ==
[2022-09-14 11:37] LABS: ALT 21 U/L (8-44); AST 22 U/L (13-35); African American GFR (CKD) 119.8 (60.0-200.0); Albumin 4.3 g/dL (3.8-4.9); Albumin/Globulin Ratio 1.65 (1.60-3.17); Alkaline Phosphatase 115 U/L (41-126); BUN/Creat Ratio 16.83 Ratio (12.00-20.00); Blood Urea Nitrogen 10.1 mg/dL (9.0-27.0); Calcium 9.4 mg/dL (8.7-10.3); Carbon Dioxide 23.2 mmol/L (20.0-27.5); Chloride 102 mmol/L (96-109); Chol/HDL Ratio 3.38 Ratio; Globulin 2.6 g/dL (1.6-3.3); Glucose 159 mg/dL (70-110); LDL Cholesterol,Calculated 72.3 mg/dL (0.0-131.0); Non-African American GFR(CKD) 103.3 (60.0-200.0); Potassium 4.6 mmol/L (3.5-5.5); Sodium 138 mmol/L (135-145); Total Bilirubin <0.15 mg/dL (0.30-1.20); Total Protein 6.9 g/dL (6.2-8.2)
[2022-09-14 11:53] LABS: HCT 44.4 % (37.2-46.3); HGB 14.6 g/dL (12.0-15.0); MCH 33.4 pg (27.0-32.0); MCHC 32.9 g/dL (32.0-37.0); MCV 101.6 fL (80.0-97.0); NRBC Per 100 WBC 0.7 /100 WBCS (0.0-0.0); Platelet Count 205 X 10*3/uL (140-440); RBC 4.37 X 10*6/uL (4.10-5.20); RDW 13.6 % (11.5-14.5); WBC 6.95 X 10*3/uL (4.50-10.00)
[2022-09-14 11:54] LABS: Basophils # (A) 0.06 X 10*3/uL (0.00-0.10); Basophils % (A) 0.9 %; Eosinophils # (A) 0.17 X 10*3/uL (0.04-0.35); Eosinophils % (A) 2.4 %; Immature Grans, Automated 0.4 %; Lymphocytes # (A) 1.89 X 10*3/uL (0.90-5.00); Lymphocytes % (A) 27.2 %; Monocytes # (A) 0.47 X 10*3/uL (0.20-1.00); Monocytes % (A) 6.8 %; Neutrophils # (A) 4.33 X 10*3/uL (1.80-7.70); Neutrophils % (A) 62.3 %; RBC Morphology NORMAL
== END | disposition home or self-care (01) ==
LOC: LABWHC1 07:50
PROVIDERS: ATTEND Family Medicine
DX: E78.00 Pure hypercholesterolemia, unspecified (principal); I10 Essential (primary) hypertension; E11.9 Type 2 diabetes mellitus without complications; F41.9 Anxiety disorder, unspecified
CPT/HCPCS: 36415; 80053; 80061; 83036; 84443; 85025

== ENCOUNTER → 2022-10-17 | Outpatient (CLI) | payer OTHER ==
--- NOTE | 2022-10-17 13:14 | MM ---
Reason for Exam: Follow-up at short interval from prior study. Last screening mammogram was performed 8 month(s) ago. Patient History: Menarche at age 10. First Full-Term at age 24. Postmenopausal. Risk Values: Juliet 5 year model risk: 1.3%. NCI Lifetime model risk: 9.3%. Prior Study Comparison: 02/11/2020 Bilateral Screening Mammogram, [facility]. 03/08/2022 Bilateral MG screening mammo w CAD, [facility]. 03/15/2022 Left MG 3D work up w/cad [facility], [facility]IN [facility]. Tissue Density: Left: There are scattered fibroglandular densities. Findings: Analyzed By CAD. Previously seen asymmetric density medially in the anterior depth of the left breast on the CC view is less apparent on today's examination than the prior exam. No new suspicious masses or group of calcifications within the left breast. Overall Assessment: Benign, BI-RAD 2 Management: Screening Mammogram of both breasts in 6 months. A clinical breast exam by your physician is recommended on an annual basis and results should be correlated with mammographic findings. This exam should not preclude additional follow-up of suspicious palpable abnormalities. Results were given to the patient verbally at the time of exam. Electronically signed and approved by: Nba Najera D.O.
== END | disposition home or self-care (01) ==
LOC: RADMAMWWP 12:46
PROVIDERS: ATTEND Obstetrics & Gynecology
DX: R92.2 Inconclusive mammogram (principal); Z78.0 Asymptomatic menopausal state
CPT/HCPCS: 77061; 77065

== ENCOUNTER → 2022-12-18 | Outpatient (CLI) | payer OTHER | END | disposition home or self-care (01) | LOC: LABWHC1 08:56 | PROVIDERS: ATTEND Family Medicine | DX: E11.65 Type 2 diabetes mellitus with hyperglycemia (principal) | CPT/HCPCS: 36415; 83036 ==

== ENCOUNTER → 2022-12-25 | Outpatient (CLI) | payer OTHER ==
--- NOTE | 2022-12-25 15:00 | XR ---
EXAMINATION TYPE: XR knee complete RT DATE OF EXAM: 12/25/2022 2:50 PM INDICATION: Patient age:Female; 52 years old; Reason for study: M25.561 PAIN IN RIGHT KNEE; [facility]. COMPARISON: None. TECHNIQUE: The Right knee(s) was examined in Frontal, lateral and oblique projections. FINDINGS: No evidence of any acute osseous pathology, soft tissue swelling, or joint effusion is no trang. Fabella is present. Atherosclerosis of the arterial vasculature. Minimal early osteophyte formation involving the femoral condyles, tibial plateau and patella. Mild joint space narrowing. IMPRESSION: 1. No acute osseous pathology. 2. Minimal tricompartmental osteoarthritic changes.
== END | disposition home or self-care (01) ==
LOC: RADXRMAIN 14:33
PROVIDERS: ATTEND Family Medicine
DX: M17.11 Unilateral primary osteoarthritis, right knee (principal)

== ENCOUNTER 2023-03-04 06:16 | Day surgery (SDC) | payer OTHER ==
[2023-02-28 09:16] VITALS: BMI 30.9
[~2023-03-04 06:16] MED LIST changes: -HYDROmorphone 0.5 MG/0.5 ML SYRINGE IVP PRN; -LACTATED RINGERS 1,000 ML IV SCH; -MIDAZOLAM 2 MG/2 ML VIAL IV PRN; +Pre Op ABX Message 1 EACH MISC MISCELLANE ONE
[2023-03-04] MEDS ORDERED: DEXAMETHASONE SOD PHOSPHATE 4 MG/ML 1 ML VIAL IV ONE (06:36)
[2023-03-04] MEDS ORDERED: HYDROmorphone 0.5 MG/0.5 ML SYRINGE IVP PRN (06:36)
[2023-03-04] MEDS ORDERED: ONDANSETRON 4 MG/2 ML VIAL IVP ONE (06:36)
[2023-03-04] MEDS ORDERED: LACTATED RINGERS 1,000 ML IV SCH (06:36)
[2023-03-04] MEDS ORDERED: MIDAZOLAM 2 MG/2 ML VIAL IV PRN (06:36)
[2023-03-04] MEDS ORDERED: LIDOCAINE 1% (10MG/ML) FOR IV START INTRADERMA PRN (06:36)
[2023-03-04 07:17] LABS: Glucose,Whole Blood 131 mg/dL (70-110)
[2023-03-04] MEDS ORDERED: MIDAZOLAM HCL 10 MG/10 ML VIAL IVP ONE (07:20)
[2023-03-04] MEDS ORDERED: BUPIVACAINE (PF) 0.25% 30 ML VIAL SQ ONE ×2 (07:28→08:20)
[2023-03-04 07:33] LABS: Basophils % (A) 0 %; Eosinophils # (A) 0.2 k/uL (0-0.7); Eosinophils % (A) 2 %; HCT 39.7 % (34.0-46.0); HGB 13.2 gm/dL (11.4-16.0); Lymphocytes # (A) 1.9 k/uL (1.0-4.8); Lymphocytes % (A) 23 %; MCH 33.2 pg (25.0-35.0); MCHC 33.3 g/dL (31.0-37.0); MCV 99.9 fL (80.0-100.0); Mean Platelet Volume 8.2; Monocytes # (A) 0.4 k/uL (0-1.0); Monocytes % (A) 4 %; Neutrophils # (A) 5.8 k/uL (1.3-7.7); Neutrophils % (A) 69 %; Platelet Count 227 k/uL (150-450); RBC 3.98 m/uL (3.80-5.40); RDW 13.7 % (11.5-15.5); WBC 8.4 k/uL (3.8-10.6)
[2023-03-04 07:42] LABS: ALT 17 U/L (4-34); AST 22 U/L (14-36); African American GFR (CKD) >90 (>60 ml/min/1.73 sqM); Albumin 3.8 g/dL (3.5-5.0); Alkaline Phosphatase 81 U/L (38-126); Anion Gap 7 mmol/L; Blood Urea Nitrogen 25 mg/dL (7-17); Calcium 9.5 mg/dL (8.4-10.2); Carbon Dioxide 22 mmol/L (22-30); Chloride 109 mmol/L (98-107); Glucose 121 mg/dL (74-99); Non-African American GFR(CKD) >90 (>60 ml/min/1.73 sqM); Potassium 4.3 mmol/L (3.5-5.1); Sodium 138 mmol/L (137-145); Total Bilirubin 0.4 mg/dL (0.2-1.3); Total Protein 6.5 g/dL (6.3-8.2)
[2023-03-04] MEDS ORDERED: fentaNYL (PF) 50 MCG/ML 2 ML AMP ONE (07:43)
[2023-03-04] MEDS ORDERED: KETOROLAC 15 MG/ML 1 ML VIAL ONE (07:43)
[2023-03-04] MEDS ORDERED: PROPOFOL 10 MG/ML 20 ML VIAL IV ONE (07:43)
[2023-03-04] MEDS ORDERED: MIDAZOLAM 2 MG/2 ML VIAL ONE (07:43)
[2023-03-04] MEDS ORDERED: HYDROmorphone (PF) 1 MG/ML ONE (07:43)
[2023-03-04] MEDS ORDERED: LIDOCAINE 1% INJ 10MG/ML (20 ML MDV) ONE (07:43)
[2023-03-04] MEDS ORDERED: SODIUM CHLORIDE 0.9% 100 ML with ceFAZolin 2,000 MG IV ONE ×2 (07:48)
--- NOTE | 2023-03-04 08:26 | P.OP ---
Date of Procedure: 03/04/23 Preoperative Diagnosis: Torn medial meniscus right knee Postoperative Diagnosis: 1. Torn medial meniscus right knee 2. Grade 2 chondromalacia patellofemoral compartment 3. Synovitis Procedure(s) Performed: 1. Arthroscopy of the right knee with partial medial meniscectomy (20% of the medial meniscus excised) 2. Chondroplasty of the patellofemoral compartment 3. Partial synovectomy of the medial femoral, lateral femoral, patellofemoral compartments Anesthesia: MIKAA Surgeon: Shelton Gilmore Estimated Blood Loss (ml): 10 Pathology: none sent Condition: stable Disposition: PACU Indications for Procedure: This is a 53-year-old female presented to my office with pain in her right knee. MRI demonstrated torn medial meniscus, and after failure of conservative treatment we discussed the surgical treatment options. She was to proceed with arthroscopic debridement of right knee, and informed consent was obtained. Operative Findings: The operative findings are consistent with a torn medial meniscus, grade 2 chondral malacia of the patellofemoral compartment, and synovitis. Description of Procedure: Patient was seen and evaluated in the preoperative area, the operative site was marked with a skin marker. The patient was then brought to the operating room and given 2 g of Ancef intravenously. A general anesthetic was administered by the anesthesia department. Tourniquet was placed on the right upper thigh and the right lower extremity was then prepped and draped in usual sterile fashion. A universal timeout was then performed confirming the patient's name, surgical site, ALLERGIES, and consent. The limb was then exsanguinated and tourniquet insufflated to 250 mmHg. Standard inferior medial and inferior lateral portals were established in the knee. The trochar was inserted in the inferolateral portal. Examination began at the patellofemoral joint. There is noted to be grade 2 chondral malacia the patellofemoral compartment and a moderate amount of synovitis. Next the medial compartment was visualized. There was a tear of the posterior horn of the medial meniscus. There was no evidence of chondral malacia the mediofemoral compartment. There was a mild amount of synovitis. The notch area was then visualized and the ACL was intact. The Lateral compartment was then visualized and the lateral meniscus was intact. There was no evidence of chondromalacia, but a mild amount of synovitis. Next, using an arthroscopic shaver and a biter, partial medial meniscectomy was performed stable margins. Approximately 20% of the meniscus was excised. A partial synovectomy is performed the medial femoral, lateral femoral, patellofemoral compartments. Chondroplasty was also performed of the patellofemoral compartment of the knee. Knee was then copiously irrigated, instruments removed, incisions were closed with 4-0 nylon. 30 mL of quarter percent plain Marcaine was injected sterilely into the surgical area. A sterile dressing was then applied, and the tourniquet was released. Patient was then transferred to recovery room in stable condition.condition.
[2023-03-04 08:44] LABS: Glucose,Whole Blood 133 mg/dL (70-110)
[2023-03-04 08:47] VITALS: TEMP 97
[2023-03-04 10:25] VITALS: BP 118/69; PULSE 75; RESP 18
== END 2023-03-04 10:13 | disposition home or self-care (01) ==
LOC: OR 06:16
PROVIDERS: ATTEND Orthopaedic Surgery
DX: S83.241A Other tear of medial meniscus, current injury, right knee, initial encounter (principal); M94.261 Chondromalacia, right knee; M65.861 Other synovitis and tenosynovitis, right lower leg; E11.9 Type 2 diabetes mellitus without complications; E78.5 Hyperlipidemia, unspecified; F10.90 Alcohol use, unspecified, uncomplicated; J44.9 Chronic obstructive pulmonary disease, unspecified; F17.200 Nicotine dependence, unspecified, uncomplicated; Z79.84 Long term (current) use of oral hypoglycemic drugs; X58.XXXA Exposure to other specified factors, initial encounter; Z79.899 Other long term (current) drug therapy; Z90.89 Acquired absence of other organs; Z98.890 Other specified postprocedural states; Z82.49 Family history of ischemic heart disease and other diseases of the circulatory system; Z83.3 Family history of diabetes mellitus
CPT/HCPCS: 80053; 85025; 29881; J2250 ×2; J1100; J2405; J0690; J2001; J3010; J1170 ×2; J1885; J2704; J0665

== ENCOUNTER 2023-06-02 02:59 | Emergency (ER) | payer OTHER ==
[2023-06-02] MEDS ORDERED: ALBUTEROL NEBULIZED 2.5 MG/3 ML INHALATION STA (03:19)
[2023-06-02] MEDS ORDERED: DEXAMETHASONE SOD PHOSPHATE 10 MG/ML 1 ML VIAL IV STA (03:19)
[2023-06-02] MEDS ORDERED: IPRATROPIUM 0.5 MG/2.5 ML NEBU INHALATION STA (03:19)
--- NOTE | 2023-06-02 03:24 | ED ---
General Adult HPI - General Chief complaint: Shortness of Breath Stated complaint: Trouble breathing Time Seen by Provider: 06/02/23 03:11 Source: patient Mode of arrival: ambulatory Limitations: no limitations - History of Present Illness Initial comments: Dictation was produced using [employer] dictation software. please excuse any grammatical, word or spelling errors. Chief Complaint: 53-year-old female presents with dyspnea, cough and hypoxia History of Present Illness:. 53-year-old female she has past medical history of COPD she still smokes cigarettes. She is having difficulty breathing at home today. states that she seemed like she be seemed to be a little winded. Checked her oxygen level with a finger pulse oximetry was in the 80s. Skin breathing treatment which improved her breathing. She's been having a cough for the last 2-3 days states is nonproductive feels like her typical bronchitis symptoms. No fever or constitutional symptoms. She does complain of a mild scratchy throat. The ROS documented in this emergency department record has been reviewed and confirmed by me. Those systems with pertinent positive or negative responses have been documented in the HPI. All other systems are other negative and/or noncontributory. - Related Data Home Medications Medication Instructions Recorded Confirmed LORazepam [Ativan] 1 mg PO BID 06/15/20 03/04/23 Ibuprofen [Motrin] 600 mg PO TID 07/01/20 03/04/23 Cholecalciferol [Vitamin D3 (25 25 mcg PO DAILY 02/28/23 03/04/23 Mcg = 1000 Iu)] Citalopram Hydrobromide 20 mg PO QAM 02/28/23 03/04/23 [Citalopram HBr] Cyanocobalamin (Vitamin B-12) 3,000 mcg PO DAILY 02/28/23 03/04/23 [Vitamin B-12] Fluticasone/Umeclidin/Vilanter 1 puff INHALATION QAM 02/28/23 03/04/23 [Trelegy Ellipta 200-62.5-25] Glimepiride 1 mg PO DAILY 02/28/23 03/04/23 Metoprolol Tartrate 25 mg PO BID 02/28/23 03/04/23 Rosuvastatin [Crestor] 10 mg PO DAILY 02/28/23 03/04/23 Slow-Mag (Unknown Dose) 1 tab PO QAM 02/28/23 03/04/23 Tab-A-Moses 1 tab PO DAILY 02/28/23 03/04/23 lisinopriL 2.5 mg PO QAM 02/28/23 03/04/23 metFORMIN HCL 500 mg PO BID 02/28/23 03/04/23 traMADol HCL 50 mg PO Q4-6H PRN 02/28/23 03/04/23 Previous Rx's Medication Instructions Recorded Aspirin 325 mg PO BID 14 Days #28 tab 03/04/23 Allergies Allergy/AdvReac Type Severity Reaction Status Date / Time bupropion [From Wellbutrin] Allergy Rash/Hives Verified 06/02/23 03:06 Review of Systems ROS Statement: Those systems with pertinent positive or pertinent negative responses have been documented in the HPI. ROS Other: All systems not noted in ROS Statement are negative. Past Medical History Past Medical History: Chest Pain / Angina, COPD, Diabetes Mellitus, Hyperlipidemia, Osteoarthritis (OA) Additional Past Medical History / Comment(s): Fast heart rate. Lower back and right knee pain. History of Any Multi-Drug Resistant Organisms: MRSA Date of last positivie culture/infection: 09/20/16 MDRO Source:: head Past Surgical History: Bariatric Surgery, Tonsillectomy Additional Past Surgical History / Comment(s): Cervical ablation, oral surgery, pain injections. Past Anesthesia/Blood Transfusion Reactions: No Reported Reaction Past Psychological History: Anxiety Smoking Status: Current every day smoker Past Alcohol Use History: Rare Past Drug Use History: None Reported - Past Family History Father Family Medical History: Deep Vein Thrombosis (DVT) General Exam - General Exam Comments Initial Comments: PHYSICAL EXAM: General Impression: Alert and oriented x3, not in acute distress HEENT: Normocephalic atraumatic, extra-ocular movements intact, pupils equal and reactive to light bilaterally, mucous membranes moist. Cardiovascular: Heart regular rate and rhythm Chest: Able to complete full sentences, no retractions, no tachypnea, diminished lung sounds bilaterally Abdomen: abdomen soft, non-tender, non-distended, no organomegaly Musculoskeletal: Pulses present and equal in all extremities, no peripheral edema Motor: no focal deficits noted Neurological: CN II-XII grossly intact, no focal motor or sensory deficits noted Skin: Intact with no visualized rashes Psych: Normal affect and mood Limitations: no limitations Course Vital Signs 06/02/23 06/02/23 06/02/23 03:04 04:04 04:27 Temperature 98.2 F Pulse Rate 98 81 85 Respiratory 18 Rate Blood Pressure 114/73 O2 Sat by Pulse 93 L Oximetry 06/02/23 06/02/23 06/02/23 04:56 05:01 05:05 Temperature Pulse Rate 95 Respiratory 16 Rate Blood Pressure 108/70 O2 Sat by Pulse 93 L 87 L 94 L Oximetry Medical Decision Making - Medical Decision Making Was pt. sent in by a medical professional or institution (, PA, GEAR HOBBER SET UP OPERATOR, urgent care, hospital, or jail...) When possible be specific @ -No Did you speak to anyone other than the patient for history (EMS, parent, family, police, friend...)? What history was obtained from this source @ -No Did you review nursing and triage notes (agree or disagree)? Why? @ -I reviewed and agree with nursing and triage notes Were old charts reviewed (outside hosp., previous admission, EMS record, old EKG, old radiological studies, urgent care reports/EKG's, jail records)? Report findings @ -No old charts were reviewed Differential Diagnosis (chest pain, altered mental status, abdominal pain women, abdominal pain men, vaginal bleeding, musculoskeletal, weakness, fever, dyspnea, syncope, headache, dizziness, GI bleed, back pain, seizure, CVA, palpatations, mental health)? @ -Differential Dyspnea: Coronary syndrome, arrhythmia, tamponade, asthma, COPD, pulmonary embolism, pneumonia, pneumothorax, pulmonary effusion, anaphylaxis, diabetic ketoacidosis, flailed chest, pulmonary contusion, diaphragmatic rupture, anemia, neuromuscular, this is not meant to be an all-inclusive list. EKG interpreted by me (3pts min.). @ -Ventricular rate 80, sinus rhythm,. Interval 157, QRS 87, QTC 390 X-rays interpreted by me (1pt min.). @ -Chest x-ray shows no acute processes CT interpreted by me (1pt min.). @ -None done U/S interpreted by me (1pt. min.). @ -None done What testing was considered but not performed or refused? (CT, X-rays, U/S, la bs)? Why? @ -None What meds were considered but not given or refused? Why? @ -None Did you discuss the management of the patient with other professionals (professionals i.e. , PA, GEAR HOBBER SET UP OPERATOR, lab, RT, psych nurse, social welfare clerk, marine underwriter, teacher, truant officer, onsite case manager)? Give summary @ -No Was smoking cessation discussed for >3mins.? @ -No Was critical care preformed (if so, how long)? @ -No Were there social determinants of health that impacted care today? How? (Homelessness, low income, unemployed, alcoholism, drug addiction, transportation, low edu. Level, literacy, decrease access to med. care, fpc, rehab)? @ -No Was there de-escalation of care discussed even if they declined (Discuss DNR or withdrawal of care, Hospice)? DNR status @ -No What co-morbidities impacted this encounter? (DM, HTN, Smoking, COPD, CAD, Cancer, CVA, ARF, Chemo, Hep., AIDS, mental health diagnosis, sleep apnea, morbid obesity)? @ -None Was patient admitted / discharged? Hospital course, mention meds given and route, prescriptions, significant lab abnormalities, going to OR and other pertinent info. @ -53-year-old female presents to emergency department for dyspnea. Vital signs upon arrival are within acceptable limits. Patient had diminished lung sounds on initial evaluation and breathing treatment along with Decadron. Patient reevaluated after breathing treatment with improvement of symptoms. Laboratory evaluation is unremarkable. D-dimer is negative. Oral testing is negative. Suspect that patient's symptoms are secondary to mild COPD exacerbation versus bronchospastic event Undiagnosed new problem with uncertain prognosis? @ -No Drug Therapy requiring intensive monitoring for toxicity (Heparin, Nitro, In sulin, Cardizem)? @ -No Were any procedures done? @ -No Diagnosis/symptom? Acute, or Chronic, or Acute on Chronic? Uncomplicated (without systemic symptoms) or Complicated (systemic symptoms)? @ -Dyspnea Side effects of treatment? @ -No Exacerbation, Progression, or Severe Exacerbation? @ -No Poses a threat to life or bodily function? How? (Chest pain, [place], [place], pneumonia, PE, COPD, DKA, ARF, appy, cholecystitis, CVA, Diverticulitis, Homicidal, Suicidal, threat to staff... and all critical care pts) @ -No - Lab Data Result diagrams: 06/02/23 03:36 06/02/23 03:36 Lab Results 06/02/23 06/02/23 06/02/23 Range/Units 03:36 03:36 03:36 WBC 8.7 (3.8-10.6) k/uL RBC 4.17 (3.80-5.40) m/uL Hgb 14.0 (11.4-16.0) gm/dL Hct 41.9 (34.0-46.0) % MCV 100.6 H (80.0-100.0) fL MCH 33.6 (25.0-35.0) pg MCHC 33.4 (31.0-37.0) g/dL RDW 14.8 (11.5-15.5) % Plt Count 196 (150-450) k/uL MPV 8.4 Neutrophils % 62 % Lymphocytes % 30 % Monocytes % 4 % Eosinophils % 2 % Basophils % 1 % Neutrophils # 5.4 (1.3-7.7) k/uL Lymphocytes # 2.6 (1.0-4.8) k/uL Monocytes # 0.4 (0-1.0) k/uL Eosinophils # 0.2 (0-0.7) k/uL Basophils # 0.1 (0-0.2) k/uL Macrocytosis Slight D-Dimer (<0.60) mg/L FEU Sodium 138 (137-145) mmol/L Potassium 3.8 (3.5-5.1) mmol/L Chloride 106 (98-107) mmol/L Carbon Dioxide 24 (22-30) mmol/L Anion Gap 8 mmol/L BUN 22 H (7-17) mg/dL Creatinine 0.42 L (0.52-1.04) mg/dL Est GFR (CKD-EPI)AfAm >90 (>60 ml/min/1.73 sqM) Est GFR (CKD-EPI)NonAf >90 (>60 ml/min/1.73 sqM) Glucose 134 H (74-99) mg/dL Calcium 9.4 (8.4-10.2) mg/dL Troponin I <0.012 (0.000-0.034) ng/mL NT-Pro-B Natriuret Pep 27 pg/mL Influenza Type A (PCR) (Not Detectd) Influenza Type B (PCR) (Not Detectd) RSV (PCR) (Not Detectd) SARS-CoV-2 (PCR) (Not Detectd) 06/02/23 06/02/23 Range/Units 03:36 05:01 WBC (3.8-10.6) k/uL RBC (3.80-5.40) m/uL Hgb (11.4-16.0) gm/dL Hct (34.0-46.0) % MCV (80.0-100.0) fL MCH (25.0-35.0) pg MCHC (31.0-37.0) g/dL RDW (11.5-15.5) % Plt Count (150-450) k/uL MPV Neutrophils % % Lymphocytes % % Monocytes % % Eosinophils % % Basophils % % Neutrophils # (1.3-7.7) k/uL Lymphocytes # (1.0-4.8) k/uL Monocytes # (0-1.0) k/uL Eosinophils # (0-0.7) k/uL Basophils # (0-0.2) k/uL Macrocytosis D-Dimer 0.32 (<0.60) mg/L FEU Sodium (137-145) mmol/L Potassium (3.5-5.1) mmol/L Chloride (98-107) mmol/L Carbon Dioxide (22-30) mmol/L Anion Gap mmol/L BUN (7-17) mg/dL Creatinine (0.52-1.04) mg/dL Est GFR (CKD-EPI)AfAm (>60 ml/min/1.73 sqM) Est GFR (CKD-EPI)NonAf (>60 ml/min/1.73 sqM) Glucose (74-99) mg/dL Calcium (8.4-10.2) mg/dL Troponin I (0.000-0.034) ng/mL NT-Pro-B Natriuret Pep pg/mL Influenza Type A (PCR) Not Detected (Not Detectd) Influenza Type B (PCR) Not Detected (Not Detectd) RSV (PCR) Not Detected (Not Detectd) SARS-CoV-2 (PCR) Not Detected (Not Detectd) Disposition Clinical Impression: Dyspnea Disposition: HOME SELF-CARE Condition: Good Instructions (If sedation given, give patient instructions): COPD (Chronic Obstructive Pulmonary Disease) (ED) Is patient prescribed a controlled substance at d/c from ED?: No Referrals: Hugh Smith [Primary Care Provider] - 1-2 days Time of Disposition: 06:22
[2023-06-02 03:42] LABS: Basophils # (A) 0.1 k/uL (0-0.2); Basophils % (A) 1 %; Eosinophils # (A) 0.2 k/uL (0-0.7); Eosinophils % (A) 2 %; HCT 41.9 % (34.0-46.0); Lymphocytes # (A) 2.6 k/uL (1.0-4.8); Lymphocytes % (A) 30 %; MCH 33.6 pg (25.0-35.0); MCHC 33.4 g/dL (31.0-37.0); MCV 100.6 fL (80.0-100.0); Macrocytosis Slight; Mean Platelet Volume 8.4; Monocytes # (A) 0.4 k/uL (0-1.0); Monocytes % (A) 4 %; Neutrophils # (A) 5.4 k/uL (1.3-7.7); Neutrophils % (A) 62 %; Platelet Count 196 k/uL (150-450); RBC 4.17 m/uL (3.80-5.40); RDW 14.8 % (11.5-15.5); WBC 8.7 k/uL (3.8-10.6)
[2023-06-02 03:49] LABS: African American GFR (CKD) >90 (>60 ml/min/1.73 sqM); Anion Gap 8 mmol/L; Blood Urea Nitrogen 22 mg/dL (7-17); Calcium 9.4 mg/dL (8.4-10.2); Carbon Dioxide 24 mmol/L (22-30); Chloride 106 mmol/L (98-107); Glucose 134 mg/dL (74-99); Non-African American GFR(CKD) >90 (>60 ml/min/1.73 sqM); Potassium 3.8 mmol/L (3.5-5.1); Sodium 138 mmol/L (137-145)
[2023-06-02 03:58] LABS: NT-Pro-B-Type Natriuretic Pept 27 pg/mL
[2023-06-02 06:50] VITALS: BP 127/82; PULSE 74; RESP 18; TEMP 98.1
--- NOTE | 2023-06-02 06:51 | XR ---
EXAMINATION TYPE: XR chest 2V DATE OF EXAM: 06/02/2023 COMPARISON: 04/21/2020 HISTORY: Dyspnea TECHNIQUE: Frontal and lateral views of the chest are obtained. FINDINGS: There is no focal air space opacity, pleural effusion, or pneumothorax seen. The cardiac silhouette size is within normal limits. The osseous structures are intact. IMPRESSION: No acute cardiopulmonary process.
== END 2023-06-02 06:31 | disposition home or self-care (01) ==
LOC: EC 02:59
DX: R06.00 Dyspnea, unspecified (principal); E11.9 Type 2 diabetes mellitus without complications; J44.9 Chronic obstructive pulmonary disease, unspecified; E78.5 Hyperlipidemia, unspecified; M19.90 Unspecified osteoarthritis, unspecified site; F41.9 Anxiety disorder, unspecified; F17.210 Nicotine dependence, cigarettes, uncomplicated; Z20.822 Contact with and (suspected) exposure to COVID-19; Z79.84 Long term (current) use of oral hypoglycemic drugs; Z79.51 Long term (current) use of inhaled steroids; Z79.899 Other long term (current) drug therapy; Z88.8 Allergy status to other drugs, medicaments and biological substances
CPT/HCPCS: 36415; 94640; 93005; 85379; 83880; 80048; 84484; 85025; 87636; 71046; 99285; 96374; J1100

== ENCOUNTER → 2023-06-12 | Outpatient (CLI) | payer OTHER ==
--- NOTE | 2023-06-13 21:01 | MM ---
Reason for Exam: Screening (asymptomatic). Last mammogram was performed 1 year(s) and 3 month(s) ago. Patient History: Menarche at age 10. First Full-Term at age 24. Postmenopausal. Risk Values: Juliet 5 year model risk: 1.3%. NCI Lifetime model risk: 9.1%. Prior Study Comparison: 03/08/2022 Bilateral MG screening mammo w CAD, [facility]. 03/15/2022 Left MG 3D work up w/cad LT, [facility]. 10/17/2022 Left MG 3D diag mammo w/cad LT, [facility]. Tissue Density: There are scattered fibroglandular densities. Findings: Analyzed By CAD. There is no suspicious group of microcalcifications or new suspicious mass in either breast. Overall Assessment: Negative, BI-RAD 1 Management: Screening Mammogram of both breasts in 1 year. . Patient should continue monthly self-breast exams. A clinical breast exam by your physician is recommended on an annual basis. This exam should not preclude additional follow-up of suspicious palpable abnormalities. Note on Juliet scores and lifetime risk: 1. A Juliet score greater than 3% is considered moderate risk. If this is the case, consider specialist referral to assess eligibility for a risk reducing agent. 2. If overall lifetime risk for the development of breast cancer is 20% or higher, the patient may qualify for future screening with alternating mammogram and breast MRI. Electronically signed and approved by: Shelby Johnson M.D. Radiologist
== END | disposition home or self-care (01) ==
LOC: RADMAMWWP 14:54
PROVIDERS: ATTEND Obstetrics & Gynecology
DX: Z12.31 Encounter for screening mammogram for malignant neoplasm of breast (principal); Z78.0 Asymptomatic menopausal state
CPT/HCPCS: 77063; 77067

== ENCOUNTER 2023-07-18 07:52 | Emergency (ER) | payer OTHER ==
--- NOTE | 2023-07-18 08:23 | ED ---
Back Pain HPI - General Chief Complaint: Abdominal Pain Stated Complaint: R Abd Pain Time Seen by Provider: 07/18/23 08:08 Source: patient, family, RN notes reviewed Mode of arrival: ambulatory Limitations: no limitations - History of Present Illness Initial Comments: This is a 53-year-old female who presents to the emergency department for right flank pain. This started about 3 days ago and has been worsening. Reports decreased urinary output, but otherwise denies any urinary symptoms. She has had occasional nausea. Also reports some constipation. Denies any fever/chills. She has been unable to get comfortable and movement tends to exacerbate the pain. Has a history of kidney stones about 30 years ago and believes symptoms may be similar. MD Complaint: back pain - Related Data Home Medications Medication Instructions Recorded Confirmed LORazepam [Ativan] 1 mg PO BID PRN 06/15/20 07/18/23 Ibuprofen [Motrin] 600 mg PO TID 07/01/20 07/18/23 Cholecalciferol [Vitamin D3 (25 25 mcg PO DAILY 02/28/23 07/18/23 Mcg = 1000 Iu)] Citalopram Hydrobromide 20 mg PO DAILY 02/28/23 07/18/23 [Citalopram HBr] Cyanocobalamin (Vitamin B-12) 2,000 mcg PO DAILY 02/28/23 07/18/23 [Vitamin B-12] Fluticasone/Umeclidin/Vilanter 1 puff INHALATION RT-DAILY 02/28/23 07/18/23 [Trelegy Ellipta 200-62.5-25] Glimepiride 1 mg PO DAILY 02/28/23 07/18/23 Metoprolol Tartrate 25 mg PO BID 02/28/23 07/18/23 Rosuvastatin [Crestor] 10 mg PO DAILY 02/28/23 07/18/23 Slow-Mag (Unknown Dose) 1 tab PO DAILY 02/28/23 07/18/23 Tab-A-Moses 1 tab PO DAILY 02/28/23 07/18/23 lisinopriL 2.5 mg PO DAILY 02/28/23 07/18/23 metFORMIN HCL 500 mg PO BID 02/28/23 07/18/23 traMADol HCL 50 mg PO Q4-6H PRN 02/28/23 07/18/23 Albuterol Sulfate [Albuterol 2 puff INHALATION RT-QID PRN 07/18/23 07/18/23 Sulfate Hfa] Previous Rx's Medication Instructions Recorded Ibuprofen 800 mg PO Q8H PRN #30 tab 07/18/23 Lidocaine 5% Patch [Lidoderm 5% 1 patch TOPICAL DAILY PRN #30 patch 07/18/23 Patch] methocarbamoL [Robaxin-750] 1,500 mg PO TID PRN #30 tab 07/18/23 Allergies Allergy/AdvReac Type Severity Reaction Status Date / Time bupropion [From Wellbutrin] Allergy Rash/Hives Verified 07/18/23 09:45 Review of Systems ROS Statement: Those systems with pertinent positive or pertinent negative responses have been documented in the HPI. ROS Other: All systems not noted in ROS Statement are negative. Past Medical History Past Medical History: Chest Pain / Angina, COPD, Diabetes Mellitus, Hyp erlipidemia, Osteoarthritis (OA) Additional Past Medical History / Comment(s): Fast heart rate. Lower back and right knee pain. History of Any Multi-Drug Resistant Organisms: MRSA Date of last positivie culture/infection: 09/20/16 MDRO Source:: head Past Surgical History: Bariatric Surgery, Tonsillectomy Additional Past Surgical History / Comment(s): Cervical ablation, oral surgery, pain injections. Past Anesthesia/Blood Transfusion Reactions: No Reported Reaction Past Psychological History: Anxiety Smoking Status: Current every day smoker Past Alcohol Use History: Occasional Past Drug Use History: None Reported - Past Family History Father Family Medical History: Deep Vein Thrombosis (DVT) General Exam Limitations: no limitations General appearance: alert, in distress Head exam: Present: atraumatic, normocephalic Respiratory exam: Present: normal lung sounds bilaterally. Absent: respiratory distress, wheezes, rales, rhonchi, stridor Cardiovascular Exam: Present: regular rate, normal rhythm, normal heart sounds. Absent: systolic murmur, diastolic murmur, rubs, gallop, clicks GI/Abdominal exam: Present: soft, normal bowel sounds. Absent: distended, tenderness, guarding, rebound, rigid Back exam: Present: CVA tenderness (R). Absent: CVA tenderness (L) Neurological exam: Present: alert, oriented X3, CN II-XII intact Psychiatric exam: Present: normal affect, normal mood Skin exam: Present: warm, dry, intact, normal color. Absent: rash Course Vital Signs 07/18/23 07/18/23 07/18/23 08:04 10:00 10:07 Temperature 98.8 F Pulse Rate 82 86 Respiratory 18 16 12 Rate Blood Pressure 117/78 117/66 114/51 O2 Sat by Pulse 97 93 L 94 L Oximetry 07/18/23 07/18/23 11:00 11:48 Temperature Pulse Rate 72 Respiratory 16 12 Rate Blood Pressure 114/51 102/64 O2 Sat by Pulse 94 L 94 L Oximetry Medical Decision Making - Medical Decision Making This is a 53 year old female who presents to the emergency department for right flank pain. Was pt. sent in by a medical professional or institution? @ -No Did you speak to anyone other than the patient for history? @ -No Did you review nursing and triage notes? @ -Yes, and I agree, it is accurate with regards to the patient's symptoms. Were old charts reviewed? @ -No Differential Diagnosis? @ -Differential Flank Pain: UTI, pyelonephritis, kidney stone, musculoskeletal, pancreatitis, cholecystitis, this is not meant to be an all-inclusive list. EKG interpreted by me (3pts min.)? @ -EKG interpreted by me demonstrating the following: Sinus rhythm. Ventricular rate 69 bpm, TN interval 161 ms, QRS duration 90 ms, QTc 408 ms. X-rays interpreted by me (1pt min.)? @ -Not obtained CT interpreted by me (1pt min.)? @ -CT scan of the abdomen and pelvis obtained. My interpretation identifies no evidence of a ureteral calculus. U/S interpreted by me (1pt. min.)? @ -Not obtained What testing was considered but not performed? (CT, X-rays, U/S, labs)? Why? @ -None What meds were considered but not given? Why? @ -None Did you discuss the management of the patient with other professionals? @ -No Did you reconcile home meds? @ -No Was smoking cessation discussed for >3mins.? @ -I discussed smoking cessation for greater than 3 minutes. The risk of smoking were discussed with the patient including but not limited to risks of cancer, stroke, coronary artery disease and COPD. Also discussed with patient were multiple methods of quitting smoking. Lastly we discussed the financial cost of smoking. Was critical care preformed (if so, how long)? @ -No Were there social determinants of health that impacted care today? How? (Homelessness, low income, unemployed, alcoholism, drug addiction, transportation, low edu. Level, literacy, decrease access to med. care, [place] [facility], rehab)? @ -No Was there de-escalation of care discussed even if they declined? (Discuss DNR or withdrawal of care, Hospice)? @ -No What co-morbidities impacted this encounter? (DM, HTN, Smoking, COPD, CAD, Cancer, CVA, Hep., AIDS, mental health diagnosis, sleep apnea, morbid obesity)? @ -DM, HLD, COPD, smoking Was patient admitted / discharged? @ -Discharged. Lab work unremarkable. Urinalysis negative for signs of i nfection or blood. CT scan of the abdomen and pelvis obtained demonstrating no evidence of a ureteral calculus or other acute process. Advised that symptoms may be musculoskeletal in nature given the reducibility and with movement exacerbating her symptoms. Symptoms controlled in the emergency department. Prescription for ibuprofen, Robaxin, and lidocaine patches provided with dosing instructions reviewed. Otherwise advised close follow-up with her primary care provider. Patient discharged home in stable condition. Undiagnosed new problem with uncertain prognosis? @ -None Drug Therapy requiring intensive monitoring for toxicity (Heparin, Nitro, In sulin, Cardizem)? @ -None Were any procedures done? @ -None Diagnosis/symptom? @ -Right flank pain Acute, or Chronic, or Acute on Chronic? @ -Acute Uncomplicated (without systemic symptoms) or Complicated (systemic symptoms)? @ -Uncomplicated Side effects of treatment? @ -None Exacerbation, Progression, or Severe Exacerbation] @ -Not applicable Poses a threat to life or bodily function? @ -This will depend on how her symptoms progress. Return precautions reviewed in depth, the patient is instructed to return to the emergency department with any new, worsening, or concerning symptoms. Patient verbalized understanding. This case was discussed in detail with the attending ED physician, Dr. [place]. Presentation, findings, and treatment plan discussed in detail as well. - Lab Data Result diagrams: 07/18/23 08:20 07/18/23 08:20 Lab Results 07/18/23 07/18/23 07/18/23 Range/Units 08:20 08:20 08:20 WBC 7.8 (3.8-10.6) k/uL RBC 3.94 (3.80-5.40) m/uL Hgb 13.5 (11.4-16.0) gm/dL Hct 40.4 (34.0-46.0) % MCV 102.5 H (80.0-100.0) fL MCH 34.2 (25.0-35.0) pg MCHC 33.4 (31.0-37.0) g/dL RDW 14.4 (11.5-15.5) % Plt Count 174 (150-450) k/uL MPV 8.3 Neutrophils % 64 % Lymphocytes % 27 % Monocytes % 5 % Eosinophils % 2 % Basophils % 1 % Neutrophils # 5.0 (1.3-7.7) k/uL Lymphocytes # 2.1 (1.0-4.8) k/uL Monocytes # 0.4 (0-1.0) k/uL Eosinophils # 0.1 (0-0.7) k/uL Basophils # 0.1 (0-0.2) k/uL Macrocytosis Slight Sodium 140 (137-145) mmol/L Potassium 4.7 (3.5-5.1) mmol/L Chloride 109 H (98-107) mmol/L Carbon Dioxide 24 (22-30) mmol/L Anion Gap 7 mmol/L BUN 24 H (7-17) mg/dL Creatinine 0.49 L (0.52-1.04) mg/dL Est GFR (CKD-EPI)AfAm >90 (>60 ml/min/1.73 sqM) Est GFR (CKD-EPI)NonAf >90 (>60 ml/min/1.73 sqM) Glucose 120 H (74-99) mg/dL Plasma Lactic Acid Uriel (0.7-2.0) mmol/L Calcium 9.5 (8.4-10.2) mg/dL Total Bilirubin 0.4 (0.2-1.3) mg/dL AST 22 (14-36) U/L ALT 16 (4-34) U/L Alkaline Phosphatase 88 (38-126) U/L Troponin I (0.000-0.034) ng/mL Total Protein 6.1 L (6.3-8.2) g/dL Albumin 3.7 (3.5-5.0) g/dL Amylase 49 (30-110) U/L Lipase 68 (23-300) U/L Urine Color Yellow Urine Appearance Clear (Clear) Urine pH 6.0 (5.0-8.0) Ur Specific Council 1.022 (1.001-1.035) Urine Protein Negative (Negative) Urine Glucose (UA) Negative (Negative) Urine Ketones Negative (Negative) Urine Blood Negative (Negative) Urine Nitrite Negative (Negative) Urine Bilirubin Negative (Negative) Urine Urobilinogen <2.0 (<2.0) mg/dL Ur Leukocyte Esterase Negative (Negative) 07/18/23 07/18/23 Range/Units 08:20 08:20 WBC (3.8-10.6) k/uL RBC (3.80-5.40) m/uL Hgb (11.4-16.0) gm/dL Hct (34.0-46.0) % MCV (80.0-100.0) fL MCH (25.0-35.0) pg MCHC (31.0-37.0) g/dL RDW (11.5-15.5) % Plt Count (150-450) k/uL MPV Neutrophils % % Lymphocytes % % Monocytes % % Eosinophils % % Basophils % % Neutrophils # (1.3-7.7) k/uL Lymphocytes # (1.0-4.8) k/uL Monocytes # (0-1.0) k/uL Eosinophils # (0-0.7) k/uL Basophils # (0-0.2) k/uL Macrocytosis Sodium (137-145) mmol/L Potassium (3.5-5.1) mmol/L Chloride (98-107) mmol/L Carbon Dioxide (22-30) mmol/L Anion Gap mmol/L BUN (7-17) mg/dL Creatinine (0.52-1.04) mg/dL Est GFR (CKD-EPI)AfAm (>60 ml/min/1.73 sqM) Est GFR (CKD-EPI)NonAf (>60 ml/min/1.73 sqM) Glucose (74-99) mg/dL Plasma Lactic Acid Uriel 1.3 (0.7-2.0) mmol/L Calcium (8.4-10.2) mg/dL Total Bilirubin (0.2-1.3) mg/dL AST (14-36) U/L ALT (4-34) U/L Alkaline Phosphatase (38-126) U/L Troponin I <0.012 (0.000-0.034) ng/mL Total Protein (6.3-8.2) g/dL Albumin (3.5-5.0) g/dL Amylase (30-110) U/L Lipase (23-300) U/L Urine Color Urine Appearance (Clear) Urine pH (5.0-8.0) Ur Specific Council (1.001-1.035) Urine Protein (Negative) Urine Glucose (UA) (Negative) Urine Ketones (Negative) Urine Blood (Negative) Urine Nitrite (Negative) Urine Bilirubin (Negative) Urine Urobilinogen (<2.0) mg/dL Ur Leukocyte Esterase (Negative) - Radiology Data Radiology results: report reviewed, image reviewed Disposition Clinical Impression: Right-sided back pain Disposition: HOME SELF-CARE Condition: Stable Instructions (If sedation given, give patient instructions): Flank Pain (ED), B ack Pain (ED) Additional Instructions: Return to the emergency department with any new, worsening, or concerning symptoms. Alternate with ibuprofen and Tylenol as needed for pain relief. You can take the Robaxin as 1 to 2 tablets up to 3-4 times daily. Be aware that this may make you drowsy. You can also apply the lidocaine patches daily. Follow up with your primary care provider in 1-2 days. Prescriptions: Ibuprofen 800 mg PO Q8H PRN #30 tab PRN Reason: Pain Lidocaine 5% Patch [Lidoderm 5% Patch] 1 patch TOPICAL DAILY PRN #30 patch PRN Reason: Pain methocarbamoL [Robaxin-750] 1,500 mg PO TID PRN #30 tab PRN Reason: Pain Is patient prescribed a controlled substance at d/c from ED?: No Referrals: Hugh Smith [Primary Care Provider] - 1-2 days Time of Disposition: 11:27
[2023-07-18 08:27] VITALS: TEMP 98.8
[2023-07-18] MEDS: KETOROLAC 15 MG/ML 1 ML VIAL IVP STA (08:33)
[2023-07-18] MEDS: ONDANSETRON 4 MG/2 ML VIAL IVP STA (08:33)
[2023-07-18] MEDS: MORPHINE SULFATE 2 MG/ML SYRINGE IVP STA (08:34)
[2023-07-18] MEDS: SODIUM CHLORIDE 0.9% 1,000 ML IV STA ×2 (08:34→10:30)
[2023-07-18 08:39] LABS: Basophils # (A) 0.1 k/uL (0-0.2); Basophils % (A) 1 %; Eosinophils # (A) 0.1 k/uL (0-0.7); Eosinophils % (A) 2 %; HCT 40.4 % (34.0-46.0); HGB 13.5 gm/dL (11.4-16.0); Lymphocytes # (A) 2.1 k/uL (1.0-4.8); Lymphocytes % (A) 27 %; MCH 34.2 pg (25.0-35.0); MCHC 33.4 g/dL (31.0-37.0); MCV 102.5 fL (80.0-100.0); Macrocytosis Slight; Mean Platelet Volume 8.3; Monocytes # (A) 0.4 k/uL (0-1.0); Monocytes % (A) 5 %; Neutrophils % (A) 64 %; Platelet Count 174 k/uL (150-450); RBC 3.94 m/uL (3.80-5.40); RDW 14.4 % (11.5-15.5); WBC 7.8 k/uL (3.8-10.6)
[2023-07-18 08:54] LABS: ALT 16 U/L (4-34); AST 22 U/L (14-36); African American GFR (CKD) >90 (>60 ml/min/1.73 sqM); Albumin 3.7 g/dL (3.5-5.0); Alkaline Phosphatase 88 U/L (38-126); Amylase 49 U/L (30-110); Anion Gap 7 mmol/L; Blood Urea Nitrogen 24 mg/dL (7-17); Calcium 9.5 mg/dL (8.4-10.2); Carbon Dioxide 24 mmol/L (22-30); Chloride 109 mmol/L (98-107); Glucose 120 mg/dL (74-99); Lipase 68 U/L (23-300); Non-African American GFR(CKD) >90 (>60 ml/min/1.73 sqM); Potassium 4.7 mmol/L (3.5-5.1); Sodium 140 mmol/L (137-145); Total Bilirubin 0.4 mg/dL (0.2-1.3); Total Protein 6.1 g/dL (6.3-8.2)
[2023-07-18 10:05] LABS: Appearance,Urine Clear (Clear); Bilirubin,Urine Negative (Negative); Blood,Urine Negative (Negative); Color,Urine Yellow; Glucose,Urine (UA) Negative (Negative); Ketones,Urine Negative (Negative); Leukocyte Esterase,Urine Negative (Negative); Nitrite,Urine Negative (Negative); Protein,Urine Negative (Negative); Specific Gravity,Urine 1.022 (1.001-1.035); Urobilinogen,Urine <2.0 mg/dL (<2.0)
--- NOTE | 2023-07-18 10:15 | CT ---
EXAMINATION: CT ABDOMEN AND PELVIS WITHOUT IV CONTRAST DATE OF EXAMINATION: 07/18/2023. COMPARISON: None available. INDICATION: Right flank pain. PROCEDURE: Axial CT of the abdomen and pelvis was performed with sagittal and coronal reformatted i mages without contrast enhancement. The exam is limited because some types of pathology may not be ad equately demonstrated due to lack of contrast enhancement. CT dose lowering techniques were used, to include: automated exposure control, adjustment for patient size, and/or use of iterative reconstruct ion. FINDINGS: LOWER CHEST : There is a calcified granuloma in the left lower lobe. The visualized lung bases are o therwise clear. There are no pleural or pericardial effusions. ABDOMEN: Liver and Biliary system: Normal. Adrenal glands: Normal. Kidneys and ureters: There are no renal stones or hydronephrosis. No ureteral stones are present.. Spleen: Normal. Pancreas: Normal. Gallbladder: Normal. Lymph nodes, Peritoneum and mesentery: There is no mesenteric or retroperitoneal lymphadenopathy. Gastrointestinal tract: There are no dilated loops of bowel or free intraperitoneal air. . The appe ndix is normal. There is been a prior gastric bypass. Aorta/IVC: There is significant vascular calcification throughout the abdominal aorta without evide nce of aneurysmal dilation. IVC normal. Abdominal wall: Normal. PELVIS: Fluid: There is no free fluid in the pelvis. Lymph Nodes: There is no pelvic or inguinal lymphadenopathy.. Urinary bladder: Normal. BONES: There are no osseous destructive lesions.. ADDITIONAL SIGNIFICANT FINDINGS: None. IMPRESSION: 1. No renal stones or hydronephrosis.. 2. No bowel obstruction or appendicitis.
[2023-07-18] MEDS: ORPHENADRINE 30 MG/ML 2 ML VIAL IVP STA (10:30)
[2023-07-18] MEDS: LIDOCAINE 4% PATCH TOPICAL ONE (10:30)
[2023-07-18] MEDS: ONDANSETRON 4 MG ODT STARTER PACK 2 TAB BTL PO STA (11:42)
[2023-07-18] MEDS: DEXAMETHASONE SOD PHOSPHATE 10 MG/ML 1 ML VIAL IVP STA (11:42)
[2023-07-18] MEDS: traMADol 50 MG STARTER PACK 3 TAB BTL PO STA (11:43)
[2023-07-18 11:54] VITALS: BP 102/64; PULSE 72; RESP 12
== END 2023-07-18 11:49 | disposition home or self-care (01) ==
LOC: EC 07:52
DX: M54.9 Dorsalgia, unspecified (principal); J44.9 Chronic obstructive pulmonary disease, unspecified; E11.9 Type 2 diabetes mellitus without complications; E78.5 Hyperlipidemia, unspecified; M19.90 Unspecified osteoarthritis, unspecified site; F41.9 Anxiety disorder, unspecified; F17.200 Nicotine dependence, unspecified, uncomplicated; Z79.1 Long term (current) use of non-steroidal anti-inflammatories (NSAID); Z79.84 Long term (current) use of oral hypoglycemic drugs; Z79.899 Other long term (current) drug therapy; Z88.8 Allergy status to other drugs, medicaments and biological substances
CPT/HCPCS: 36415; 80053; 82150; 83605; 83690; 84484; 85025; 81003; 74176; 99285; 96374; 96375 ×4; 96361 ×2; J1100; J2360; J2405; J2270; J1885; S0119

== ENCOUNTER → 2023-10-22 | Outpatient (CLI) | payer OTHER ==
--- NOTE | 2023-10-22 11:45 | BD ---
EXAMINATION TYPE: Axial Bone Density DATE OF EXAM: 10/22/2023 CLINICAL HISTORY: 53 years old Female. ICD-10 CODE: Z78.0 ASYMPTOMATIC MENOPAUSAL STATE Height: 5 ft 4in Weight: 178 FRAX RISK QUESTIONS: Alcohol (3 or more units per day): no Family History (Parent hip fracture): no Glucocorticoids (More than 3mos): no (Ex: prednisone, prednisolone, methylprednisolone, dexamethasone, and hydrocortisone). History of Fracture in Adulthood: yes Secondary Osteoporosis: 1. Type 1 Diabetes: no 2. Hyperthyroidism: no 3. Menopause before 45: no 4. Malnutrition: no 5. Chronic liver disease: no Rheumatoid Arthritis: no Current Tobacco Use: yes RISK FACTORS HISTORY OF: Surgery to Spine/Hip(right/left)/Wrist (right/left): no MEDICATIONS: Thyroid Medications: none Osteoporosis Medications: none EXAM MEASUREMENTS: Bone mineral densitometry was performed using the Score The Board System. Bone mineral density as measured about the Lumbar spine is: ----- L1-L4(G/cm2): 1.223 T Score Values are as follows: ----- L1: -0.7 ----- L2: -0.6 ----- L3: 0.3 ----- L4: 1.7 ----- L1-L4: 0.4 Z Score Values are as follows: ----- L1: -0.4 ----- L2: -0.3 ----- L3: 0.6 ----- L4: 2.0 ----- L1-L4: 0.7 baseline Bone mineral density about the R hip (g/cm2): 0.958 Bone mineral density about the L hip (g/cm2): 0.893 T Score values are as follows: -----R Neck: -0.6 -----L Neck: -1.0 -----R Total: -0.6 -----L Total: -0.3 Z Score values are as follows: -----R Neck: 0.1 -----L Neck: -0.3 -----R Total: -0.3 -----L Total: 0.0 baseline FRAX%s: The graph provided illustrates a 5.7 % chance for a major osteoporotic fx and a 0.5 % chance for the hips probability for fx in 10 years time. IMPRESSION: Normal (Values between +1 and -1 indicate normal bone mass). Consider repeating this study in 5 year s or sooner if there is some new clinical indication. NOTE: T-SCORE=SD OF THE YOUNG ADULT MEAN.
== END | disposition home or self-care (01) ==
LOC: RADBDWWP 10:16
PROVIDERS: ATTEND Family Medicine
DX: Z78.0 Asymptomatic menopausal state (principal)
CPT/HCPCS: 77080

== ENCOUNTER → 2024-01-28 | Outpatient (CLI) | payer OTHER ==
--- NOTE | 2024-02-03 22:31 | CTL ---
EXAMINATION TYPE: CT Low Dose Lung DATE OF EXAM ORDERED: 01/28/2024 HISTORY: 53-year-old female current smoker with 35 pack-year history. Lung cancer screening. F17.210 CT DLP: [address] CTDI: 2.41 mGy Automated exposure control for dose reduction was used. SCREENING VISIT: Baseline COMPARISON: None TECHNIQUE: Low dose computed tomography scan was performed through the chest with coronal and sagitta l reconstructions. CT DIAGNOSTIC QUALITY: Satisfactory FINDINGS: The heart is normal size without pericardial effusion. Aorta normal caliber with conventional branching anatomy. No thoracic lymphadenopathy by CT size criteria. Mild emphysematous change. Some mild stranding atelectasis or scarring in the lower lungs. Benign leonid cified granuloma left lower lobe. Mild diffuse bronchial wall thickening. 4 mm pulmonary nodule anterior right lower lung, axial image 165. Otherwise, no suspicious pulmonary nodules. Visualized upper abdomen shows postsurgical change probably relating to previous Kristen-en-Y gastric by pass. Bones: No osseous destructive process. Old right-sided rib fracture deformity. IMPRESSION: 1. LungRADS 2, benign. A benign calcified granuloma as well as a small 4 mm pulmonary nodule on basel ine screening. 2. COPD with mild emphysema. Recommend smoking cessation. CT LUNG RAD AND CT CHEST RECOMMENDATION: Lung-Rad 2 Benign Appearance or Behavior: Continue annual sc reening with LDCT in 12 months. S Modifier (other clinically significant findings): None [facility], , 02/03/2024 10:29 PM
== END | disposition home or self-care (01) ==
LOC: RADCTMAIN 12:57
PROVIDERS: ATTEND Internal Medicine Critical Care Medicine
DX: Z12.2 Encounter for screening for malignant neoplasm of respiratory organs
CPT/HCPCS: 71271